=== PATIENT | female | born 1945 | race Caucasian/White ===

== ENCOUNTER 2020-04-11 10:55 | Outpatient (REF) | payer MEDICARE, SELFPAY ==
--- NOTE | 2020-04-11 10:59 | MM_ITS ---
EXAMINATION: MM SCREENING DIGITAL BREAST TOMOSYNTHESIS, BILATERAL CLINICAL INFORMATION: Screening. Asymptomatic. The lifetime risk of breast cancer based on the Tyrer-Cuzick Model is 6.1%. COMPARISON: Mammography: January 13, 2019 and studies dating back to August 15, 2009 TECHNIQUE: Digital breast tomosynthesis is performed in both the craniocaudal and mediolateral oblique views along with computer-aided detection (CAD). Synthesized 2D images are generated from the tomosynthesis. FINDINGS: There are scattered areas of fibroglandular density (ACR BI-RADS breast composition Category b). There are no significant masses, abnormal calcifications, or other abnormalities. MM/MM tomosynthesis screening BI IMPRESSION: There are no significant changes from prior study. ASSESSMENT: BI-RADS 1: Negative RECOMMENDATION: Routine annual mammography screening. This patient's information was entered into a reminder system with a target due date for their next mammogram.
== END 2020-04-11 10:56 | disposition home or self-care (01) ==
LOC: HO.MAMMO 10:55
PROVIDERS: PCP Internal Medicine; Visit Provider Internal Medicine
DX: Z12.31 Encounter for screening mammogram for malignant neoplasm of breast (principal)
CPT/HCPCS: 77063; 77067

== ENCOUNTER → 2020-09-17 10:59 | Outpatient (BNVA) | payer MEDICARE, SELFPAY | PROVIDERS: PCP Internal Medicine; Visit Provider Surgery | DX: K43.2 Incisional hernia without obstruction or gangrene (principal); Z85.038 Personal history of other malignant neoplasm of large intestine | CPT/HCPCS: 99212 ==

== ENCOUNTER 2020-10-12 07:15 | Day surgery (SDC) | payer MEDICARE, SELFPAY ==
[2020-10-09 09:53] VITALS: BMI 34.0
--- NOTE | 2020-10-11 08:44 | HO.ANESPROP2 ---
Documented by User: Yulissa Huizar 10/11/20 08:50 HPI - Anesthesia Eval Consult details Narrative: 75yo for Colonoscopy, Poss Polypectomy [facility] Active Problems Active Problems: All Active Problems (Updated 10/09/20 @ 09:46 by Jeanna Field) Incisional hernia (Acute) History of colon cancer (Acute) Past Medical History Medical History Anemia Elevated cholesterol History of chemotherapy History of colon cancer History of diverticulosis History of heartburn Incisional hernia Surgical History Surgical History History of bladder suspension procedure History of esophagogastroduodenoscopy (EGD) History of hemicolectomy History of total abdominal hysterectomy Hx of colonoscopy Social History Social History Alcohol intake: current Alcohol type: wine Smoking Status: Former smoker Advance Directives: No Advance Directives Information Provided: No Advance Directives on File: No Meds Allergies Allergy/AdvReac Type Severity Reaction Status Date / Time lidocaine Allergy Unknown TOPICAL Verified 10/09/20 09:48 LIDOCAINE- SWELLING/REDNESS amoxicillin [From AUGMENTIN] AdvReac Severe RASH Verified 10/09/20 09:48 clavulanic acid AdvReac Severe RECTAL Verified 10/09/20 09:48 [From AUGMENTIN] BLEED/RASH topical lidocaine Allergy Unknown rash, Uncoded 10/09/20 09:48 swelling Home Medications Medication Instructions Recorded Confirmed Last Taken Type aspirin 325 mg tablet 325 mg PO DAILY 09/17/20 10/09/20 Unknown History atorvastatin 10 mg tablet 10 mg PO DAILY 09/17/20 10/09/20 Unknown History Exam Exam Date and Time: October 11, 2020 0844 Height,Weight and Vital Signs: Height 5 ft 1 in Weight 81.647 kg Assessment and Plan Assessment Anesthesia Assessment: Chart Reviewed Documented by User: Mani Villareal 10/12/20 08:24 PMFSH Past Medical History Medical History Anemia Elevated cholesterol History of chemotherapy History of colon cancer History of diverticulosis History of heartburn Incisional hernia Surgical History Surgical History History of bladder suspension procedure History of esophagogastroduodenoscopy (EGD) History of hemicolectomy History of total abdominal hysterectomy Hx of colonoscopy Social History Social History Alcohol intake: current Alcohol type: wine Smoking Status: Former smoker Advance Directives: No Advance Directives Information Provided: No Advance Directives on File: No Meds Allergies Allergy/AdvReac Type Severity Reaction Status Date / Time lidocaine Allergy Unknown TOPICAL Verified 10/09/20 09:48 LIDOCAINE- SWELLING/REDNESS amoxicillin [From AUGMENTIN] AdvReac Severe RASH Verified 10/09/20 09:48 clavulanic acid AdvReac Severe RECTAL Verified 10/09/20 09:48 [From AUGMENTIN] BLEED/RASH topical lidocaine Allergy Unknown rash, Uncoded 10/09/20 09:48 swelling Home Medications Medication Instructions Recorded Confirmed Last Taken Type aspirin 325 mg tablet 325 mg PO DAILY 09/17/20 10/09/20 Unknown History atorvastatin 10 mg tablet 10 mg PO DAILY 09/17/20 10/09/20 Unknown History Exam Airway Mallampati Class: II TM Dist: >3cm Neck ROM: Full Loose/Missing/Broken Teeth: Yes (2 upper front crowns not loose, poor dentition) Heart: [id number] Lungs: cta b/l Assessment and Plan Assessment Anesthesia Assessment: Anesthesia Plan Discussed, PAT Visit and Chart Reviewed Final Anesthetic Review NPO: Yes ASA Class: II Final Preanesthetic Review: No Changes in Pt Med Stat, Meds/Allgs Chart Reviewed, Consent Obtained/Reviewed and Anes Risks/Benef Reviewed Patient Risk: Low Procedure Risk: Low Assessment/Block/Sedation in SS: Assess/Block/Sedation-SS Anesthetic Plan Anesthetic Plan: MAC: and Agree w/ Assess. and Plan Disposition: Standard PACU
[2020-10-12 07:34] VITALS: BP 136/68; PULSE 106; RESP 16; TEMP 36.2; O2SAT 95
[2020-10-12] MEDS: Lactated Ringers 1,000 ML 100 ML IVCONT (07:45)
--- NOTE | 2020-10-12 08:30 | MHC.SHP ---
Pre-Procedural Eval Section B Chief Complaint: History of colon cancer Allergies: Allergies Allergy/AdvReac Type Severity Reaction Status Date / Time lidocaine Allergy Unknown TOPICAL Verified 10/09/20 09:48 LIDOCAINE- SWELLING/REDNESS amoxicillin [From AUGMENTIN] AdvReac Severe RASH Verified 10/09/20 09:48 clavulanic acid AdvReac Severe RECTAL Verified 10/09/20 09:48 [From AUGMENTIN] BLEED/RASH topical lidocaine Allergy Unknown rash, Uncoded 10/09/20 09:48 swelling Plan I have reviewed the history and physical and performed a pertinent physical examination on my patient. No changes have occurred unless specified.
--- NOTE | 2020-10-12 09:10 | W.PM.OPN ---
Operative Note Operative Note Date of Service: 10/12/20 Narrative: Preop diagnosis: Personal history of colon cancer Postop diagnosis: Severe diverticulosis of the sigmoid Procedure: Colonoscopy Surgeon: Thierry Gary MD The patient is a 75 year female who previously had right colon resection with Dr. Murphy for colon cancer. She undergoes follow-up colonoscopies for surveillance. Her last colonoscopy was in 2018. She had polyps at that time so she was advised to have another colonoscopy in 3 years. She understood the technique of the procedure as well as the risks, benefits, and alternatives. She was brought to the operating room placed in left lateral decubitus position under monitored anesthesia care. A full digital rectal was done. There were no palpable anal canal lesions. The tip of the Olympus colonoscope was gently inserted through the anal orifice and advanced with insufflation until we reached what appeared to be the ileal-colonic anastomosis. I could see the transition from colonic mucosa to small intestinal mucosa this point with note of the fine villi of the small intestine. I therefore proceeded to withdraw the scope with careful examination of the entire colonic mucosa being done with scope withdrawal. The patient had adequate bowel prep so it was unlikely that any lesion had been missed. There was note of severe diverticulosis of the sigmoid. Other than that there were no lesions seen. I reached the rectum and examined this carefully and there were no polyps or any other lesions. The rectal shelf in the anal canal where unremarkable and the scope was then withdrawn completely with desufflation. The patient tolerated the procedure well. There were no complications noted. In view of her personal history of colon cancer, her next colonoscopy may be in the next 5 years if she still in good health by then. Withdrawal time was about 7 minutes.
[2020-10-12 09:14] VITALS: BP 104/47; PULSE 92; RESP 12; TEMP 36.3; O2SAT 98
--- NOTE | 2020-10-12 09:14 | PM.OP ---
Brief Operative Note Date of Service: 10/12/20 Pre-op diagnosis: Personal history of colon cancer Post-op diagnosis: other (Severe diverticulosis) Procedure: Colonoscopy Surgeon: Thierry Gary MD Anesthesia: GLMA Estimated blood loss (mL): 0 Pathology: none sent Condition: stable
[2020-10-12 09:29] VITALS: BP 119/59; PULSE 80; RESP 16; TEMP 36.3; O2SAT 97
== END 2020-10-12 10:25 | disposition home or self-care (01) ==
PROVIDERS: PCP Internal Medicine; Visit Provider Surgery
PROC: 0DJD8ZZ Inspection of Lower Intestinal Tract, Via Natural or Artificial Opening Endoscopic (ICD-10-PCS; CPT 45378; principal; 2020-10-12 08:20)
DX: Z12.11 Encounter for screening for malignant neoplasm of colon (principal); Z85.038 Personal history of other malignant neoplasm of large intestine; K57.30 Diverticulosis of large intestine without perforation or abscess without bleeding; D64.9 Anemia, unspecified; Z92.21 Personal history of antineoplastic chemotherapy; Z90.49 Acquired absence of other specified parts of digestive tract; Z79.82 Long term (current) use of aspirin; Z79.899 Other long term (current) drug therapy; Z88.0 Allergy status to penicillin; Z88.8 Allergy status to other drugs, medicaments and biological substances; Z87.891 Personal history of nicotine dependence
CPT/HCPCS: G0105

== ENCOUNTER → 2020-10-24 11:20 | Outpatient (BNVA) | payer MEDICARE, SELFPAY | PROVIDERS: PCP Internal Medicine; Visit Provider Surgery | DX: K57.90 Diverticulosis of intestine, part unspecified, without perforation or abscess without bleeding (principal); Z85.038 Personal history of other malignant neoplasm of large intestine | CPT/HCPCS: Q3014 ==

== ENCOUNTER 2021-07-24 10:02 | Outpatient (REF) | payer MEDICARE, SELFPAY ==
--- NOTE | ~2021-07-24 | MM_ITS ---
EXAMINATION: MM SCREENING DIGITAL BREAST TOMOSYNTHESIS, BILATERAL CLINICAL INFORMATION: Screening. Asymptomatic. The lifetime risk of breast cancer based on the Tyrer-Cuzick Model is 6%. COMPARISON: Mammography: 04/11/2020, 01/13/2019, 12/22/2017 TECHNIQUE: Digital breast tomosynthesis is performed in both the craniocaudal mediolateral oblique views along with computer-aided detection (CAD). Synthesized 2D images are generated from the tomosynthesis. Additional left CC view is provided. FINDINGS: There are scattered areas of fibroglandular density (ACR BI-RADS breast composition Category b). There are no significant masses, abnormal calcifications, or other abnormalities. Parenchymal pattern is similar to prior studies. There is no developing density or architectural abnormality. The axilla and skin contours are unremarkable. No significant changes. MM/MM tomosynthesis screening BI IMPRESSION: No mammographic evidence of malignancy. ASSESSMENT: BI-RADS 1: Negative RECOMMENDATION: Routine annual mammography screening. This patient's information was entered into a reminder system with a target due date for their next mammogram.
== END 2021-07-24 10:03 | disposition home or self-care (01) ==
LOC: HO.MAMMO 10:02
PROVIDERS: PCP Internal Medicine; Visit Provider Internal Medicine
DX: Z12.31 Encounter for screening mammogram for malignant neoplasm of breast (principal)
CPT/HCPCS: 77063; 77067

== ENCOUNTER 2022-07-29 08:50 | Outpatient (REF) | payer MEDICARE, SELFPAY ==
--- NOTE | ~2022-07-29 | MM_ITS ---
EXAMINATION: BONE DENSITOMETRY CLINICAL INDICATION: Postmenopausal. COMPARISON: Previous BD dated 01/13/2019 and baseline BD dated 11/08/2009. TECHNIQUE: Using a W[employer] DXA System (software version: 13.1) manufactured by [employer], dual-energy x-ray absorptiometry was performed of the lumbar spine and left hip. The images are of good technical quality. Summary results are attached. FINDINGS: AP SPINE L1-L4: Current: BMD 1.202 g/cm2, Z-score 1.7, T-score 0.2, normal, 4.9% increase from previous, 9.5% increase from baseline (<5% change is not significant). Prior: BMD 1.146 g/cm2. Baseline: BMD 1.098 g/cm2. LEFT FEMUR, NECK: Current: BMD 0.775 g/cm2, Z-score -0.1, T-score -1.9, osteopenia. Prior: BMD 0.769 g/cm2. Baseline: BMD 0.942 g/cm2. LEFT FEMUR, TOTAL: Current: BMD 0.850 g/cm2, Z-score 0.4, T-score -1.3, osteopenia, 6.7% decrease from previous, 15.0% decrease from baseline (<5% change is not significant). Prior: BMD 0.911 g/cm2. Baseline: BMD 1.000 g/cm2. IDENTIFIED RISK FACTORS: Menopause, hysterectomy, dementia, bilateral oophorectomy. HISTORY OF FRACTURE: None listed. MEDICATIONS: Calcium/multivitamin. MM/XR DEXA axial skeleton IMPRESSION: 1. DIAGNOSIS: Osteopenia based on the lowest T-score value of -1.9 in the lumbar spine applying World Health Organization criteria. 2. 10-YEAR FRACTURE RISK PREDICTION, FRAX: Major osteoporotic fracture (clinical spine, forearm, hip or shoulder) 13.3%. Hip fracture 3.4%. 3. Treatment Recommendations: NOF guidelines recommend consideration for treatment in postmenopausal women and men age 50 and older presenting with the following: -A hip or vertebral (clinical or morphometric) fracture. -T-score less than or equal to -2.5 at the femoral neck or spine after appropriate evaluation to exclude secondary causes. -Low bone mass at the hip or spine and a 10-year fracture probability by FRAX of greater than or equal to 3% for hip fracture or greater than or equal to 20% for major osteoporotic fracture based on the [place] adapted WHO algorithm. 4. Other Recommendations: All treatment decisions require clinical judgment and consideration of individual patient factors, including patient preferences, comorbidities, previous drug use, risk factors not captured in the FRAX model (e.g. frailty, falls, vitamin D deficiency, increased bone turnover, interval significant decline in bone density) and possible under or overestimation of fracture risk by FRAX. Additional medical evaluation for secondary cause of low bone mineral density may be appropriate. FUTURE SCAN RECOMMENDATION: People with diagnosed cases of osteoporosis or at high risk for fracture should have regular bone mineral density tests. For patients eligible for Medicare, routine testing is allowed once every 2 years. The testing frequency can be increased to one year for patients who have rapidly progressing disease, those who are receiving or discontinuing medical therapy to restore bone mass, or have additional risk factors.
--- NOTE | ~2022-07-29 | MM_ITS ---
EXAMINATION: MM SCREENING DIGITAL BREAST TOMOSYNTHESIS, BILATERAL CLINICAL INFORMATION: Screening. Asymptomatic. The lifetime risk of breast cancer based on the Tyrer-Cuzick Model is 5%. COMPARISON: Mammography: 07/24/2021, 04/11/2020, 01/13/2019 TECHNIQUE: Digital breast tomosynthesis is performed in both the craniocaudal and mediolateral oblique views along with computer-aided detection (CAD). Synthesized 2D images are generated from the tomosynthesis. FINDINGS: There are scattered areas of fibroglandular density (ACR BI-RADS breast composition Category b). There are no significant masses, abnormal calcifications, or other abnormalities. Breast tissue composition borders on predominantly fatty. Background stromal and fibroglandular densities are stable. No developing density or architectural abnormality. The axilla are unremarkable. MM/MM tomosynthesis screening BI IMPRESSION: No mammographic evidence of malignancy. ASSESSMENT: BI-RADS 1: Negative RECOMMENDATION: Routine annual mammography screening. This patient's information was entered into a reminder system with a target due date for their next mammogram.
== END 2022-07-29 08:51 | disposition home or self-care (01) ==
LOC: HO.MAMMO 08:50
PROVIDERS: PCP Internal Medicine; Visit Provider Internal Medicine
DX: Z12.31 Encounter for screening mammogram for malignant neoplasm of breast (principal); Z13.820 Encounter for screening for osteoporosis; Z78.0 Asymptomatic menopausal state
CPT/HCPCS: 77063; 77067; 77080

== ENCOUNTER 2023-08-04 08:45 | Outpatient (REF) | payer MEDICARE, SELFPAY | END 2023-08-04 08:46 | disposition home or self-care (01) | LOC: HO.MAMMO 08:45 | PROVIDERS: PCP Internal Medicine; Visit Provider Internal Medicine | DX: Z12.31 Encounter for screening mammogram for malignant neoplasm of breast (principal) | CPT/HCPCS: 77063; 77067 ==

== ENCOUNTER → 2023-08-04 09:00 | Outpatient (BNV) | payer MEDICARE, SELFPAY | PROVIDERS: PCP Internal Medicine; Visit Provider Radiology Diagnostic Radiology | DX: Z12.31 Encounter for screening mammogram for malignant neoplasm of breast (principal) | CPT/HCPCS: 77063; 77067 ==

== ENCOUNTER 2023-12-07 08:40 | Inpatient (IN) | payer MEDICARE, SELFPAY ==
[2023-12-07] VITALS (7 sets, daily range): BP systolic 110–200; BP diastolic 50–88; PULSE 69–98; RESP 12–18; TEMP 36.3–36.9; O2SAT 93–100; BMI 31.9
--- NOTE | ~2023-12-07 | CT_ITS ---
EXAMINATION: CT ABDOMEN AND PELVIS WITH CONTRAST CLINICAL INFORMATION: Diarrhea with abdominal pain and distention COMPARISON: CT abdomen pelvis 08/22/2016 TECHNIQUE: Multidetector volumetric images were obtained from the superior aspect of the liver through the pubic symphysis following administration 85 mL of Omnipaque 350 intravenous contrast. Sagittal and coronal reformatted images were obtained on the technologist's workstation. Oral contrast: No This CT examination was performed using dose optimization techniques as appropriate, variously including the following: *Automated exposure control *Adjustment of mA and/or kV according to patient size (this includes techniques or standardized protocols for targeted exams where dose is matched to indication/reason for exam; i.e. extremities or head) *Use of iterative reconstruction technique DLP: 605 mGy-cm FINDINGS: LUNG BASES: Emphysematous changes are seen with mild bronchial thickening. The 4 mm right lower lobe pulmonary nodule is unchanged (4:37 compare prior 3:74). The left hemidiaphragm is mildly elevated. No consolidations or effusions. LIVER, GALLBLADDER, AND BILIARY TREE: The liver is normal in size, shape, and attenuation. No focal hepatic lesion or biliary ductal dilatation is present. The gallbladder is distended with multiple layering calculi. No pericholecystic fluid collections are seen. PANCREAS: Unremarkable. SPLEEN: Unremarkable. ADRENAL GLANDS: Unremarkable. KIDNEYS AND URETERS: The kidneys are normal in size, shape, and attenuation. No hydronephrosis, hydroureter, or calculi seen. No perinephric stranding. 2 tiny unchanged right benign Bosniak class I renal cysts are noted which require no additional imaging or follow-up. No solid renal masses are seen. BLADDER: Empty and cannot be evaluated GASTROINTESTINAL TRACT: Status post partial right colectomy with widely patent ileocolic anastomosis. The distal ileum is diseased and narrowing of approximately the last cm segment. Proximal to this the small bowel is dilated with some fecalization of contents. The very proximal small bowel is not dilated. The remaining colon demonstrates marked diverticular changes in the sigmoid with scattered diverticula elsewhere. No evidence of diverticulitis. Appendix no longer present. ABDOMINAL WALL: There is a large broad-based epigastric hernia present containing transverse colon. LYMPH NODES: No retroperitoneal lymphadenopathy. VASCULAR: There is mild aneurysmal dilatation of the infrarenal aorta which has increased in diameter from 2.3 cm in maximal dimension to 3.0 cm. There is eccentric thrombus and calcification present in the small aneurysm. PELVIC VISCERA: The uterus is not seen. An abnormal adnexal mass is not detected. No free intraperitoneal fluid is present. No free air OSSEOUS STRUCTURES: Unremarkable. Degenerative changes are present. CT/CT abdomen pelvis w IV con IMPRESSION: 1. Status post partial right colectomy with widely patent ileocolic anastomosis. 2. The distal ileum is diseased and narrowed with proximal dilatation of small bowel with fecalization of contents. Findings are consistent with a partial small bowel obstruction. 3. Incidental note made of emphysema, stable 4 mm right lower lobe pulmonary nodule, cholelithiasis, colonic diverticulosis without diverticulitis, large epigastric hernia containing transverse colon and mild aneurysmal dilatation of the infrarenal aorta at 3 cm. Surveillance aortic ultrasound recommended every 3 years. Fleischner guidelines were followed.
--- NOTE | 2023-12-07 09:04 | ECG_ITS ---
Test Reason : WEAKNESS Blood Pressure : / mmHG Vent. Rate : 068 BPM Atrial Rate : 068 BPM P-R Int : 128 ms QRS Dur : 082 ms QT Int : 396 ms P-R-T Axes : 049 017 144 degrees QTc Int : 421 ms Normal sinus rhythm Possible Inferior infarct , age undetermined Abnormal ECG When compared with ECG of 20-AUG-2016 17:50, Vent. rate has decreased BY 38 BPM T wave inversion more evident in Lateral leads QT has shortened Referred By: Brandee Unger Electronically Signed By:CARLENE DUNCAN MD
--- NOTE | 2023-12-07 09:13 | ED_ITS ---
HPI - Nausea/Vomiting/Diarrhea General Chief complaint: Nausea/Vomiting/Diarrhea Stated complaint: N/V/D PER EMS Time Seen by Provider: 12/07/23 08:44 Source: patient Mode of arrival: ambulatory Limitations: no limitations History of Present Illness ED Provider: GELACIO SEXTON Narrative: 78 yo female with PMH of HLD, colon cancer remote s/p resection, cognitive impairment here with c/o diarrhea nonbloody yesterday with n/v and lower abdominal pain no travel, sick contacts, food exposures, antibiotic use. She called 911 after symptoms persisted today. MD elicited complaint: nausea, vomiting, diarrhea and abdominal pain Onset (ago): day(s) (2) Description of vomiting: food contents and watery Description of diarrhea: watery Associated nausea: Yes Associated abdominal pain: Yes Location of pain: LLQ and suprapubic Radiation: diffuse Pain consistency: intermittent Severity: moderate Quality: cramping Exacerbating factors: eating Relieving factors: none Context: history of abdominal surgery Associated symptoms: loss of appetite, malaise, nausea/vomiting and weakness Related Data Home Medications ?Medication ?Instructions ?Recorded ?Confirmed aspirin 325 mg tablet 325 mg PO DAILY 09/17/20 10/24/20 atorvastatin 10 mg tablet 10 mg PO DAILY 09/17/20 10/24/20 Previous Rx's ?Medication ?Instructions ?Recorded sodium,potassium,mag sulfates 17.5 See Rx Instructions PO .COMPLEX 09/17/20 gram-3.13 gram-1.6 gram oral soln #354 mL (Suprep Bowel Prep Kit) Allergies Allergy/AdvReac Type Severity Reaction Status Date / Time lidocaine Allergy Unknown TOPICAL Verified 12/07/23 08:57 LIDOCAINE- SWELLING/REDNESS amoxicillin [From AUGMENTIN] AdvReac Severe RASH Verified 12/07/23 08:57 clavulanic acid AdvReac Severe RECTAL Verified 12/07/23 08:57 [From AUGMENTIN] BLEED/RASH topical lidocaine Allergy Unknown rash, Uncoded 12/07/23 08:57 swelling Review of Systems 2 Review of Systems: Constitutional : No Weight loss, No Fever, No Chills ENT/Mouth : No sore throat, No Rhinorrhea Eyes: No Swelling, No Redness Cardiovascular : No Chest Pain, No SOB, NoEdema Respiratory : No Cough, No Sputum, No Wheezing Gastrointestinal : Positive Nausea, Positive Vomiting, positive Diarrhea, positive abdominal Pain, No Hematochezia, No Melena Genitourinary : No Dysuria, No Urinary Frequency, No Hematuria, No Urgency Musculoskeletal : No joint pain, No Myalgias, No Joint Swelling Skin : No Skin Lesions, No rash Neuro : No Weakness, No Numbness, No Dizziness, No Headache Psych : No Anxiety/Panic, No Depression Heme/Lymph: No Bruising, No Lymphadenopathy Endocrine : No Polyuria, No Polydipsia All other systems reviewed and are negative. Gastrointestinal: Gastrointestinal: Reports nausea PMFSH Past Medical History Attestation statement: The following information was validated with the patient. Source: old records reviewed Medical History Diverticulosis History of chemotherapy Anemia History of heartburn History of diverticulosis Elevated cholesterol Incisional hernia History of colon cancer Surgical History History of total abdominal hysterectomy History of bladder suspension procedure Hx of colonoscopy History of esophagogastroduodenoscopy (EGD) History of hemicolectomy Social History Social History (Updated 12/07/23 @ 09:14 by Brandee Unger DO) Alcohol intake: current Alcohol intake frequency: holidays/special occasions only Alcohol type: wine Patient Tobacco Use Status: Never used Tobacco Smoked in Last 30 Days: No Use of substances other than those prescribed or required for medical reasons: No Advance Directives: No Advance Directives Information Provided: No Do you have a plan to hurt others: No Plan Physical Exam 2 Vital Signs: Vital Signs: Last Vital Signs Temp 97.7 F 12/07/23 12:00 Pulse 98 12/07/23 12:00 Resp 12 12/07/23 10:00 BP 111/50 L 12/07/23 12:00 Pulse Ox 98 12/07/23 12:00 O2 Del Method Room Air 12/07/23 12:00 BMI result Body Mass Index 31.9 Appearance: Alert. Oriented X3. No acute distress. Eyes: Pupils equal, round and reactive to light. ENT: Pharynx dry MM Neck: Normal inspection. Neck supple. CVS: Normal heart rate and rhythm. Pulses normal. Respiratory: No respiratory distress. Breath sounds normal. Abdomen: Soft and mild distention with ttp in LLQ no rebound Skin: Skin warm and dry. pale skin color. Normal skin turgor. Extremities: No lower extremity edema. Neuro: Oriented X 3. No motor deficit. No sensory deficit. Medications Administered Discontinued Medications Generic Name Dose Route Start Last Admin Trade Name Paula PRN Reason Stop Dose Admin Sodium Chloride 1,000 mls @ 999 mls/hr 12/07/23 09:04 12/07/23 12:29 Ns IV 12/07/23 10:04 Infused .Q1H1M ONE Infusion Iohexol 100 ml 12/07/23 10:55 12/07/23 10:55 Iohexol 350 Mg/Ml 100 Ml Infus..Btl IV 12/07/23 10:56 85 ml ONCE ONE Administration Morphine Sulfate 2 mg 12/07/23 09:04 12/07/23 09:25 Morphine Sulfate 2 Mg/Ml Cartridge IVPUSH 12/07/23 09:05 2 mg ONCE ONE Administration Protocol Ondansetron HCl 4 mg 12/07/23 09:04 12/07/23 09:25 Ondansetron Hcl 4 Mg/2 Ml Vial IVPUSH 12/07/23 09:05 4 mg ONCE ONE Administration Medical Decision Making Medical Decision Making [facility] Narrative: 78 yo female with PMH of HLD, colon cancer remote s/p resection, cognitive impairment here with c/o n/v/d and abdominal pain at this time will need IVF, IV morphine for pain, CT scan for obstruction, bowel pathology - stool studies ordered. Differential Diagnosis Differential Diagnoses: The differential diagnosis associated with the presentation includes viral syndrome, GI pathology, SBO Admission/Observation Consideration of admission/observation: Escalation of care including admission/observation considered admit for IVF and nausea medications Consult Healthcare Provider Management of the patient was discussed with: Hospitalist (will admit) and Physical Education Department Chair (Jerry no surgery needed) Lab Data [facility] Lab Attestation statement: I reviewed the patient's lab results. 12/07/23 09:41 12/07/23 09:41 Labs: Lab Results 12/07/23 12/07/23 Range/Units 09:41 10:05 WBC 9.8 (4.8-10.8) X10*3/uL RBC 5.38 (4.20-5.50) X10*6/uL Hgb 15.8 (12.0-16.0) g/dl Hct 46.4 (37.0-47.0) % MCV 86.2 (80.0-98.0) fL MCH 29.4 (27.0-33.0) pg MCHC 34.1 (31.0-35.0) g/dl RDW 13.4 (11.0-16.0) % Plt Count 224 (160-400) X10*3/uL MPV 10.3 (9.4-12.3) fL Immature Gran % (Auto) 0.7 H (0.0-0.4) % Neut % (Auto) 89.0 H (45-73) % Lymph % (Auto) 4.5 L (20-40) % [place] % (Auto) 5.4 (2-11) % Eos % (Auto) 0.0 (0-4) % Baso % (Auto) 0.4 (0-2) % Lymph # (Auto) 0.4 L (1.2-4.9) X10*3/uL [place] # (Auto) 0.5 (0.1-1.2) X10*3/uL Eos # (Auto) 0.0 (0.0-0.4) X10*3/uL Baso # (Auto) 0.0 (0.0-0.2) X10*3/uL Abs Immat Gran (auto) 0.07 H (0.00-0.03) X10*3/uL Absolute Neuts (auto) 8.8 H (2.0-8.3) x10*3/uL Absolute Nucleated RBC 0.000 (0.0-0.012) X10*3/uL Nucleated RBC % (auto) 0.0 (0.0-0.2) /100WBC Sodium 141 (135-145) mmol/L Potassium 4.0 (3.3-5.1) mmol/L Chloride 107 (96-108) mmol/L Carbon Dioxide 23 (22-29) mmol/L Anion Gap 15 (12-20) BUN 9 (9-16) mg/dL Creatinine 0.81 (0.5-1.4) mg/dL Estim Creat Clear Calc 53.6 Estimated GFR > 60 Random Glucose 127 H (60-115) mg/dL Lactic Acid 1.5 (0.5-2.0) mmol/L Calcium 9.2 (8.4-10.2) mg/dL Magnesium 1.9 (1.6-2.6) mg/dL Total Bilirubin 0.6 (0.0-1.0) mg/dL Direct Bilirubin 0.2 (0.0-0.5) mg/dL AST 18 (5-31) U/L ALT 12 (0-31) U/L Alkaline Phosphatase 66 (39-117) U/L Total Protein 6.9 (6.5-8.0) g/dL Albumin 3.7 (3.5-5.0) g/dL Lipase 27 (8-78) U/L Urine Color Dark Yellow Urine Appearance Turbid Urine pH 5.5 (5.0-9.0) Ur Specific [place] >= 1.030 H (1.005-1.025) Urine Protein 30 (1+) H (Neg-Trace) mg/dL Urine Glucose (UA) Negative (Negative) mg/dL Urine Ketones 15 (Negative) mg/dL Urine Blood Negative (Negative) Urine Nitrite Negative (Negative) Ur Leukocyte Esterase Moderate (2+) H (Negative) Urine RBC 0-2 (0-2) /HPF Urine WBC 6-10 (0-5) /HPF Ur Squamous Epith Cells 3-5 (0-2) /HPF Calcium Oxalate Crystal Present Urine Bacteria 1+ (None Seen) Hyaline Casts 0-2 (0-2) /LPF Independent Interpretation I performed an independent interpretation of an: EKG and CT Scan (PSBO) Interpretation: Rate: 68 Rhythm: NSR [place]: normal Normal P waves. Normal SHEYLA. Normal QRS complex. ST T wave : nonspecific scooping ST T wave segments an inversions in anterior lateral leads, no BHUPINDER qTC: 421 prior studies: noted on prior ECG 2017 The study has been interpreted contemporaneously by me. . Independent Historian Clinical information obtained from an independent historian. History obtained from or confirmed by: EMS and Other (family) External Record Review External record reviewed: Inpatient record Critical Care Time Critical Care Time Critical Care Time: Yes Total Critical Care Time: 35 Attestation: IV morphine with improvement in pain, medical consult, admission I attest to this time spent taking care of the patient Discharge Plan Discharge Clinical Impression: Partial small bowel obstruction Nausea & vomiting Qualifiers: Vomiting type: unspecified Qualified Code(s): R11.2 - Nausea with vomiting, unspecified Patient Disposition: Admitted As Inpatient Print Language: Armenian
[2023-12-07] MEDS: Morphine Sulfate 2 MG/ML CARTRIDGE IVPUSH (09:25)
[2023-12-07] MEDS: ondansetron HCL 4 MG/2 ML VIAL IVPUSH (09:25)
[2023-12-07] MEDS: 0.9 % Sodium Chloride 1,000 ML 999 ML IV (09:28)
--- NOTE | 2023-12-07 09:34 | PC.NURSE ---
Pt arrices from EMS with c/o n/v/d since about 6am today. Reports Hx diverticulitis and bowel resection in 2017. States she did eat an ear of corn last night. Pain is 5/10 in the abdomen. Pt medicated with Zofran and Morphine per AUG.
[2023-12-07 09:48] LABS: MANUAL DIFF FLAG NO
[2023-12-07 09:53] LABS: Basophils Percent Auto 0.4 % (0-2); Hematocrit 46.4 % (37.0-47.0); Hemoglobin 15.8 g/dl (12.0-16.0); Imm Gran Abs Auto 0.07 X10*3/uL (0.00-0.03); Imm Gran Pct Auto 0.7 % (0.0-0.4); Lymphocytes Absolute Auto 0.4 X10*3/uL (1.2-4.9); Lymphocytes Percent Auto 4.5 % (20-40); Mean Corpuscular HGB Conc 34.1 g/dl (31.0-35.0); Mean Corpuscular Hemoglobin 29.4 pg (27.0-33.0); Mean Corpuscular Volume 86.2 fL (80.0-98.0); Mean Platelet Volume 10.3 fL (9.4-12.3); Monocytes Absolute Auto 0.5 X10*3/uL (0.1-1.2); Monocytes Percent Auto 5.4 % (2-11); Neutrophils Absolute Auto 8.8 x10*3/uL (2.0-8.3); Platelet Count 224 X10*3/uL (160-400); Red Blood Count 5.38 X10*6/uL (4.20-5.50); Red Cell Distribution Width 13.4 % (11.0-16.0); White Blood Count 9.8 X10*3/uL (4.8-10.8)
[2023-12-07 10:02] LABS: Lactic Acid 1.5 mmol/L (0.5-2.0)
[2023-12-07 10:07] LABS: Alanine Aminotransferase 12 U/L (0-31); Albumin Level 3.7 g/dL (3.5-5.0); Alkaline Phosphatase 66 U/L (39-117); Anion Gap 15 (12-20); Aspartate Amino Transferase 18 U/L (5-31); Bilirubin Direct 0.2 mg/dL (0.0-0.5); Bilirubin Total 0.6 mg/dL (0.0-1.0); Blood Urea Nitrogen 9 mg/dL (9-16); Calcium 9.2 mg/dL (8.4-10.2); Carbon Dioxide 23 mmol/L (22-29); Chloride 107 mmol/L (96-108); Creatinine Clr Calc Pharmacy 53.6; Estimated Glomerular Filt Rate > 60; Glucose Random 127 mg/dL (60-115); Lipase 27 U/L (8-78); Magnesium 1.9 mg/dL (1.6-2.6); Sodium 141 mmol/L (135-145); Total Protein 6.9 g/dL (6.5-8.0)
[2023-12-07 10:21] LABS: Appearance Urine Turbid; Color Urine Dark Yellow; Glucose Urine UA Negative (Negative); Leukocyte Esterase Urine Moderate (2+) (Negative); Nitrite Urine Negative (Negative); PH 5.5 (5.0-9.0); Specific Gravity - Urine >= 1.030 (1.005-1.025); UMIC TRIGGER UACC YES; Urine Blood Negative (Negative); Urine Ketones 15 mg/dL (Negative); Urine Protein 30 (1+) mg/dL (Neg-Trace)
[2023-12-07 10:51] LABS: Bacteria Urine 1+ (None Seen); Calcium Oxalate Crystals Urine Present; Hyaline Casts Urine 0-2 /LPF (0-2); RBC Urine 0-2 /HPF (0-2); UACC Culture Trigger YES
[2023-12-07] MEDS: iohexoL 350 MG/ML 100 ML INFUS..BTL IV (10:55)
--- NOTE | 2023-12-07 11:31 | PC.NURSE ---
11:31a: Pt is observed resting in bed with daughter at bedside. Pt reports pain level has decreased however is still experiencing some pressure to her abd. Awaiting further testing and disposition.
--- NOTE | 2023-12-07 13:22 | PHA.MEDREC ---
Pharmacy Consult ? Medication Reconciliation Pharmacy has completed the medication reconciliation. Spoke to Patient and son to confirm med list. patients son states she only takes Donepezil 5 mg daily. He did see Atorvastatin bottle at home, however she doesn't take them.
--- NOTE | 2023-12-07 13:37 | P.HPHOSP_ITS ---
History of Present Illness Date of Service: 12/07/23 Attending physician on admission: Sincere Barakat Chief Complaint: abd pain, diarrhea 70-year-old female with history of hyperlipidemia, history of colon cancer s/p resection in 2017, cognitive impairment presented to the ED earlier today for evaluation of abdominal pain and nausea, vomiting, diarrhea. She reports she has been having near constant nonradiating mid abdominal pain over the last few weeks which acutely worsened last night. This morning was reporting a 10/10 pain, now more controlled around 3-4/10. Last night she also started with around 5+ episodes of watery diarrhea that is continued into this morning. This morning was also nauseous with vomiting. Denies any melena, hematochezia, fevers, chills, dysuria, hematuria, increased urinary frequency, cough, shortness of breath, chest pain. She denies any recent travel, antibiotic use, or eating bad foods. However, her [id number], Sujey, who is at bedside reports the patient short-term memory has been worsening over the last few months and they have been needing to remove bad foods from her refrigerator so it is unclear patient did actually consume some bad foods. She does currently live by herself. Since arrival, has been afebrile, vitals stable though did desaturate into the mid 80s following morphine administration. Was placed on 2 L supplemental O2. There is no leukocytosis. Renal function baseline, electrolyte levels normal. Lactic acid 1.5, hepatic function within normal limits. Urinalysis with 2+ leukocytes, 1+ protein, elevated specific gravity with positive squamous epithelial cells and 1+ bacteria. She is not complaining of any urinary symptoms. CT abdomen/pelvis shows s/p partial right colectomy was widely patent ileocolic anastomosis. The distal ileum is diseased and narrowed with proximal dilatation of small bowel with fecalization of contents consistent with partial small bowel obstruction. There is incidentally noted emphysema, colonic diverticulosis, large epigastric hernia without obstruction and mild aneurysmal dilatation of the infrarenal aorta 3 cm. She was evaluated by General surgery in the ED with suspicion for gastroenteritis. Not recommending NG tube at this time. Review of Systems 2 Review of Systems: Yes all other systems are reviewed and are negative [facility] Medical History Diverticulosis History of chemotherapy Anemia History of heartburn History of diverticulosis Elevated cholesterol Incisional hernia History of colon cancer Surgical History History of total abdominal hysterectomy History of bladder suspension procedure Hx of colonoscopy History of esophagogastroduodenoscopy (EGD) History of hemicolectomy Social History Alcohol intake: current Alcohol intake frequency: holidays/special occasions only Alcohol type: wine Patient Tobacco Use Status: Never used Tobacco Smoked in Last 30 Days: No Use of substances other than those prescribed or required for medical reasons: No Advance Directives: No Advance Directives Information Provided: No Do you have a plan to hurt others: No Plan Meds Allergies Allergy/AdvReac Type Severity Reaction Status Date / Time lidocaine Allergy Unknown TOPICAL Verified 12/07/23 08:57 LIDOCAINE- SWELLING/REDNESS amoxicillin [From AUGMENTIN] AdvReac Severe RASH Verified 12/07/23 08:57 clavulanic acid AdvReac Severe RECTAL Verified 12/07/23 08:57 [From AUGMENTIN] BLEED/RASH topical lidocaine Allergy Unknown rash, Uncoded 12/07/23 08:57 swelling Active Medications: Current Medications Sodium Chloride (Ns) 1,000 mls @ 75 mls/hr IVCONT .[id number] [facility] Home Medications ?Medication ?Instructions ?Recorded ?Confirmed ?Last Taken ?Type aspirin 325 mg tablet 325 mg PO DAILY PRN Pain 09/17/20 12/07/23 Unknown History donepezil 5 mg tablet 5 mg PO DAILY 12/07/23 12/07/23 12/05/23 History Physical Exam 2 Vital Signs and Narrative: Vital Signs: Last Vital Signs Temp 97.7 F 12/07/23 12:00 Pulse 98 12/07/23 12:00 Resp 12 12/07/23 10:00 BP 111/50 L 12/07/23 12:00 Pulse Ox 98 12/07/23 12:00 O2 Del Method Room Air 12/07/23 12:00 BMI result Body Mass Index 31.9 Constitutional - Awake and Alert, No apparent distress Eyes - PERRLA, EOMI Cardiovascular - S1S2, RRR, No edema Respiratory - Normal lung expansion, Normal respiratory effort, No respiratory distress, CTA bilaterally Gastrointestinal - softly distended with reducible epigastric hernia and mild diffuse ttp; hypoactive BS; No rebound or guarding Extremities - no calf tenderness bilaterally, no swelling Skin - Warm/Dry Neurological - Alert & oriented x3 Psychological - Appropriate affect Results Labs 12/07/23 09:41 12/07/23 09:41 Labs: Laboratory Results - last 24 hr 12/07/23 12/07/23 09:41 10:05 MCV 86.2 MCH 29.4 MCHC 34.1 RDW 13.4 Plt Count 224 MPV 10.3 Immature Gran % (Auto) 0.7 H Neut % (Auto) 89.0 H Lymph % (Auto) 4.5 L [place] % (Auto) 5.4 Eos % (Auto) 0.0 Baso % (Auto) 0.4 Lymph # (Auto) 0.4 L [place] # (Auto) 0.5 Eos # (Auto) 0.0 Baso # (Auto) 0.0 Abs Immat Gran (auto) 0.07 H Absolute Neuts (auto) 8.8 H Absolute Nucleated RBC 0.000 Nucleated RBC % (auto) 0.0 Anion Gap 15 Estim Creat Clear Calc 53.6 Estimated GFR > 60 Random Glucose 127 H Lactic Acid 1.5 Calcium 9.2 Magnesium 1.9 Total Bilirubin 0.6 Direct Bilirubin 0.2 AST 18 ALT 12 Alkaline Phosphatase 66 Total Protein 6.9 Albumin 3.7 Lipase 27 Urine Color Dark Yellow Urine Appearance Turbid Urine pH 5.5 Ur Specific [place] >= 1.030 H Urine Protein 30 (1+) H Urine Glucose (UA) Negative Urine Ketones 15 Urine Blood Negative Urine Nitrite Negative Ur Leukocyte Esterase Moderate (2+) H Urine RBC 0-2 Urine WBC 6-10 Ur Squamous Epith Cells 3-5 Calcium Oxalate Crystal Present Urine Bacteria 1+ Hyaline Casts 0-2 Imaging Radiologist's Impressions: Impressions Abdomen/Pelvis CT 12/07/23 10:39 IMPRESSION: 1. Status post partial right colectomy with widely patent ileocolic anastomosis. 2. The distal ileum is diseased and narrowed with proximal dilatation of small bowel with fecalization of contents. Findings are consistent with a partial small bowel obstruction. 3. Incidental note made of emphysema, stable 4 mm right lower lobe pulmonary nodule, cholelithiasis, colonic diverticulosis without diverticulitis, large epigastric hernia containing transverse colon and mild aneurysmal dilatation of the infrarenal aorta at 3 cm. Surveillance aortic ultrasound recommended every 3 years. Fleischner guidelines were followed. Assessment and Plan (1) Partial small bowel obstruction: Status: Acute Plan 70-year-old female with history of hyperlipidemia, history of colon cancer s/p resection in 2017, cognitive impairment admitted for further management of PSBO/ileus #Acute PSBO/ileus -?gastroenteritis -gi panel/cdiff pcr ordered -continue gentle IVF -Clear liquids, advanace as tolerated -pain management using pain scale -antiemetics prn #Unspecified cognitive impairment -continue donepazil dvt prophylaxis- lovenox dnr/dni- MOLST form completed bedside pt requires inpt stay at least 2 midnights for management of partial SBO with po intolerance in pt hx colon resection who would be at risk for progression to obstruction and will require IV fluids, diet advancement and expert consultation Quality Stroke Does the patient have a stroke diagnosis?: No VTE Prior VTE?: No VTE Risk Level:: Medical - moderate - high VTE Device Contraindication: Treatment Not Indicated VTE Drug Contraindication: N/A - Med Ordered
--- NOTE | 2023-12-07 13:44 | PM.CNGS ---
History of Present Illness Consult details Consult date: 12/07/23 Narrative: Patient is a 78-year-old female who has had a proximally 2 week history of intermittent diarrhea which has progressed over the last 2 days. Some associated nausea. She denies any sick contacts. She denied any unusual diet. She has not had any recent foreign travel. No recent prolonged antibiotic use Patient has history of right colon cancer and had surgery several years ago for this. She has had multiple colonoscopies but does not remember when her most recent one was. Patient has a known incisional hernia from the above-mentioned surgery for many years ago which has never been repaired. She otherwise has regular bowel habits and no other chronic GI issues or complaints. Chart was reviewed and patient evaluated. Normal white count and chemistry. CT reviewed [facility] Past Medical History Medical History Diverticulosis History of chemotherapy Anemia History of heartburn History of diverticulosis Elevated cholesterol Incisional hernia History of colon cancer Surgical History Surgical History History of total abdominal hysterectomy History of bladder suspension procedure Hx of colonoscopy History of esophagogastroduodenoscopy (EGD) History of hemicolectomy Social History Social History (Updated 12/07/23 @ 09:14 by Brandee Unger DO) Alcohol intake: current Alcohol intake frequency: holidays/special occasions only Alcohol type: wine Patient Tobacco Use Status: Never used Tobacco Smoked in Last 30 Days: No Use of substances other than those prescribed or required for medical reasons: No Advance Directives: No Advance Directives Information Provided: No Do you have a plan to hurt others: No Plan Meds Allergies Allergy/AdvReac Type Severity Reaction Status Date / Time lidocaine Allergy Unknown TOPICAL Verified 12/07/23 08:57 LIDOCAINE- SWELLING/REDNESS amoxicillin [From AUGMENTIN] AdvReac Severe RASH Verified 12/07/23 08:57 clavulanic acid AdvReac Severe RECTAL Verified 12/07/23 08:57 [From AUGMENTIN] BLEED/RASH topical lidocaine Allergy Unknown rash, Uncoded 12/07/23 08:57 swelling Active Medications: Current Medications Acetaminophen (Acetaminophen 325 Mg Tablet) 650 mg PO Q6H PRN PRN Reason: Pain, Mild (Pain Scale 1-3), fever or headache Calcium Carbonate (Calcium Carbonate 750 Mg Tab.Chew) 750 mg PO Q4H PRN PRN Reason: Heartburn Sodium Chloride (Ns) 1,000 mls @ 75 mls/hr IVCONT .[id number] [facility] Magnesium Hydroxide (Milk Of Magnesia 30 Ml Oral.Susp) 30 ml PO DAILY PRN PRN Reason: Constipation Melatonin (Melatonin 3 Mg Tablet) 6 mg PO BEDTIME PRN PRN Reason: Insomnia Morphine Sulfate (Morphine Sulfate 2 Mg/Ml Cartridge) 2 mg IVPUSH Q4H PRN; Protocol PRN Reason: Pain, Severe (Pain Scale 7-10) Ondansetron HCl (Ondansetron Hcl 4 Mg/2 Ml Vial) 4 mg IVPUSH Q8H PRN PRN Reason: Nausea and Vomiting Oxycodone HCl (Oxycodone Hcl Immed Release 5 Mg Tablet) 5 mg PO Q6H PRN PRN Reason: Pain, Moderate(Pain Scale 4-6) Sodium Chloride (0.9 % Sodium Chloride Flush 3 Ml Syringe) [facility] Medications ?Medication ?Instructions ?Recorded ?Confirmed ?Last Taken ?Type aspirin 325 mg tablet 325 mg PO DAILY PRN Pain 09/17/20 12/07/23 Unknown History donepezil 5 mg tablet 5 mg PO DAILY 12/07/23 12/07/23 12/05/23 History Physical Exam Vital Signs: Vital Signs: Last Vital Signs Temp 97.7 F 12/07/23 12:00 Pulse 98 12/07/23 12:00 Resp 12 12/07/23 10:00 BP 111/50 L 12/07/23 12:00 Pulse Ox 98 12/07/23 12:00 O2 Del Method Room Air 12/07/23 12:00 BMI result Body Mass Index 31.9 Const: Other: Pleasant elderly female in no acute distress. Patient's son was also present during evaluation. GI: Other: Abdomen midline incision with large reducible hernia. Abdomen is mildly corpulent, soft, benign. No evidence of any localized tenderness, guarding, rebound, or rigidity. Results Labs 12/07/23 09:41 12/07/23 09:41 Labs: Abnormal lab results 12/07/23 12/07/23 Range/Units 09:41 10:05 Immature Gran % (Auto) 0.7 H (0.0-0.4) % Neut % (Auto) 89.0 H (45-73) % Lymph % (Auto) 4.5 L (20-40) % Lymph # (Auto) 0.4 L (1.2-4.9) X10*3/uL Abs Immat Gran (auto) 0.07 H (0.00-0.03) X10*3/uL Absolute Neuts (auto) 8.8 H (2.0-8.3) x10*3/uL Random Glucose 127 H (60-115) mg/dL Ur Specific [place] >= 1.030 H (1.005-1.025) Urine Protein 30 (1+) H (Neg-Trace) mg/dL Ur Leukocyte Esterase Moderate (2+) H (Negative) Short CBC 12/07/23 Range/Units 09:41 WBC 9.8 (4.8-10.8) X10*3/uL Hgb 15.8 (12.0-16.0) g/dl Hct 46.4 (37.0-47.0) % Plt Count 224 (160-400) X10*3/uL BMP 12/07/23 09:41 Sodium 141 Potassium 4.0 Chloride 107 Carbon Dioxide 23 BUN 9 Creatinine 0.81 Calcium 9.2 Liver Function 12/07/23 Range/Units 09:41 Total Bilirubin 0.6 (0.0-1.0) mg/dL Direct Bilirubin 0.2 (0.0-0.5) mg/dL AST 18 (5-31) U/L ALT 12 (0-31) U/L Alkaline Phosphatase 66 (39-117) U/L Albumin 3.7 (3.5-5.0) g/dL Urine 12/07/23 Range/Units 10:05 Urine Color Dark Yellow Urine Appearance Turbid Urine pH 5.5 (5.0-9.0) Ur Specific [place] >= 1.030 H (1.005-1.025) Urine Protein 30 (1+) H (Neg-Trace) mg/dL Urine Glucose (UA) Negative (Negative) mg/dL All other labs normal. Assessment and Plan (1) Diarrhea: Status: Acute Plan At present, no acute surgical issues. Patient is going to be admitted to the hospitalist service. We will follow. Patient most probably has gastroenteritis/food poisoning with the associated symptomatic diarrhea and unlikely to be obstruction. We will nonetheless follow the patient clinically along with serial labs and exams and will direct further interventions and studies based on the patient's clinical course. Procedures Date of Service Date of Service: 12/07/23
[2023-12-07] MEDS: Enoxaparin Sodium 40 MG/0.4 ML SYRINGE SUBCUT (14:32)
[2023-12-07] MEDS: 0.9 % Sodium Chloride 1,000 ML 75 ML IVCONT (14:36)
[2023-12-08] MEDS: 0.9 % Sodium Chloride 1,000 ML 75 ML IVCONT ×2 (03:13→15:47)
[2023-12-08 04:00] VITALS: BP 122/56; PULSE 65; RESP 16; TEMP 36.6; O2SAT 98
[2023-12-08 06:41] LABS: MANUAL DIFF FLAG NO
[2023-12-08 06:53] LABS: Basophils Percent Auto 0.9 % (0-2); Eosinophils Absolute Auto 0.1 X10*3/uL (0.0-0.4); Eosinophils Percent Auto 1.3 % (0-4); Hemoglobin 13.2 g/dl (12.0-16.0); Imm Gran Abs Auto 0.01 X10*3/uL (0.00-0.03); Imm Gran Pct Auto 0.2 % (0.0-0.4); Mean Corpuscular HGB Conc 33.8 g/dl (31.0-35.0); Mean Corpuscular Volume 88.6 fL (80.0-98.0); Monocytes Absolute Auto 0.6 X10*3/uL (0.1-1.2); Monocytes Percent Auto 12.7 % (2-11); Neutrophils Absolute Auto 2.8 x10*3/uL (2.0-8.3); Neutrophils Percent Auto 62.9 % (45-73); Platelet Count 179 X10*3/uL (160-400); Red Cell Distribution Width 13.5 % (11.0-16.0); White Blood Count 4.5 X10*3/uL (4.8-10.8)
[2023-12-08 07:02] LABS: Anion Gap 10 (12-20); Blood Urea Nitrogen 8 mg/dL (9-16); Calcium 8.5 mg/dL (8.4-10.2); Carbon Dioxide 26 mmol/L (22-29); Chloride 113 mmol/L (96-108); Creatinine Clr Calc Pharmacy 59.5; Estimated Glomerular Filt Rate > 60; Glucose Random 82 mg/dL (60-115); Potassium 3.9 mmol/L (3.3-5.1); Sodium 145 mmol/L (135-145)
[2023-12-08 07:28] VITALS: BP 115/57; PULSE 73; RESP 16; TEMP 36; O2SAT 93
[2023-12-08] MEDS: Donepezil HCl 5 MG TABLET PO (07:39)
--- NOTE | 2023-12-08 09:41 | MHC.CM.PN ---
SPOKE WITH PATIENTS DIL WHO EXPLINS THAT PT LIVES ALONE HAD MOW BUT WAS REFUSING THEM,AN APPT FOR SERVIES THRU [facility] HAS BEEN ARRANGED FOR December PT [facility]FAMILY SUPPORT AND SERVIES VS STR
--- NOTE | 2023-12-08 10:10 | PM.PNGS ---
Subjective Subjective Date of Service: 12/08/23 Interval history: Feels improved, less abdominal pain. Denies nausea. No further liquid stools. Physical Exam Vital Signs: Vital Signs: Last Vital Signs Temp 96.8 F 12/08/23 07:28 Pulse 73 12/08/23 07:28 Resp 16 12/08/23 07:28 BP 115/57 L 12/08/23 07:28 Pulse Ox 93 12/08/23 07:28 O2 Del Method Room Air 12/08/23 07:28 O2 Flow Rate 2.5 12/08/23 04:00 BMI result Body Mass Index 31.9 Const: General: comfortable, no acute distress and alert Orientation/consciousness: patient oriented x3 Resp: Effort & Inspection: normal respiratory effort GI: Other: large hernia, soft and reducible, mild tenderness Inspection: Yes distended (mild) Palpation (GI): Soft to palpation and Tenderness to palpation present (GI) (mild lower abdominal tenderness) Skin: General skin exam: no rashes or lesions noted Neuro: General: patient oriented x3 and moves all extremities Objective Data Active Medications Acetaminophen (Acetaminophen 325 Mg Tablet) 650 mg PO Q6H PRN PRN Reason: Pain, Mild (Pain Scale 1-3), fever or headache Calcium Carbonate (Calcium Carbonate 750 Mg Tab.Chew) 750 mg PO Q4H PRN PRN Reason: Heartburn Donepezil HCl (Donepezil Hcl 5 Mg Tablet) 5 mg PO DAILY [facility] Last Admin: 12/08/23 07:39 Dose: 5 mg Documented By: PATRICIA Enoxaparin Sodium (Enoxaparin Sodium 40 Mg/0.4 Ml Syringe) 40 mg SUBCUT Q24H [facility] Last Admin: 12/07/23 14:32 Dose: 40 mg Documented By: JAYLIN Sodium Chloride (Ns) 1,000 mls @ 75 mls/hr IVCONT .[id number] [facility] Last Admin: 12/08/23 03:13 Dose: 75 mls/hr Documented By: RAMOS Magnesium Hydroxide (Milk Of Magnesia 30 Ml Oral.Susp) 30 ml PO DAILY PRN PRN Reason: Constipation Melatonin (Melatonin 3 Mg Tablet) 6 mg PO BEDTIME PRN PRN Reason: Insomnia Morphine Sulfate (Morphine Sulfate 2 Mg/Ml Cartridge) 2 mg IVPUSH Q4H PRN; Protocol PRN Reason: Pain, Severe (Pain Scale 7-10) Ondansetron HCl (Ondansetron Hcl 4 Mg/2 Ml Vial) 4 mg IVPUSH Q8H PRN PRN Reason: Nausea and Vomiting Oxycodone HCl (Oxycodone Hcl Immed Release 5 Mg Tablet) 5 mg PO Q6H PRN PRN Reason: Pain, Moderate(Pain Scale 4-6) Sodium Chloride (0.9 % Sodium Chloride Flush 3 Ml Syringe) 3 ml IVFLUSH QSHIFT [facility] Last Admin: 12/08/23 07:19 Dose: Not Given Documented By: PATRICIA Non-Admin Reason: IV Running Labs 12/08/23 05:36 12/08/23 05:36 Labs: Laboratory Results - last 24 hr 12/07/23 12/08/23 10:05 05:36 MCV 88.6 MCH 30.0 MCHC 33.8 RDW 13.5 Plt Count 179 MPV 11.0 Immature Gran % (Auto) 0.2 Neut % (Auto) 62.9 Lymph % (Auto) 22.0 [place] % (Auto) 12.7 H Eos % (Auto) 1.3 Baso % (Auto) 0.9 Lymph # (Auto) 1.0 L [place] # (Auto) 0.6 Eos # (Auto) 0.1 Baso # (Auto) 0.0 Abs Immat Gran (auto) 0.01 Absolute Neuts (auto) 2.8 Absolute Nucleated RBC 0.000 Nucleated RBC % (auto) 0.0 Anion Gap 10 L Estim Creat Clear Calc 59.5 Estimated GFR > 60 Random Glucose 82 Calcium 8.5 D Urine Color Dark Yellow Urine Appearance Turbid Urine pH 5.5 Ur Specific [place] >= 1.030 H Urine Protein 30 (1+) H Urine Glucose (UA) Negative Urine Ketones 15 Urine Blood Negative Urine Nitrite Negative Ur Leukocyte Esterase Moderate (2+) H Urine RBC 0-2 Urine WBC 6-10 Ur Squamous Epith Cells 3-5 Calcium Oxalate Crystal Present Urine Bacteria 1+ Hyaline Casts 0-2 Microbiology Microbiology Results: Microbiology 12/07/23 Unknown Urine Culture - Final Urine clean catch - Urine roe top Procedures Date of Service Date of Service: 12/08/23 Progress Note: A&P Assessment and plan (1) Diarrhea: Status: Acute Plan Gastroenteritis vs PSBO. Appears to be resolving. Abd softly distended, mild lower abd tenderness. Diet as tolerated. Encouraged OOB/ambulation and increasing activity. Time Spent With Patient Time: Total time managing care of this patient today ____ minutes. Quality Stroke Does the patient have a stroke diagnosis?: No VTE Prior VTE?: No VTE Risk Level:: Medical - moderate - high VTE Device Contraindication: Treatment Not Indicated VTE Drug Contraindication: N/A - Med Ordered
--- NOTE | 2023-12-08 12:20 | P.PNIM_ITS ---
Subjective Subjective Date of Service: 12/08/23 Interval History: Patient notes improvement since admission; tolerating small amounts of clear liquids. Review of Systems Denies chest pain Denies nausea vomiting no diarrhea. Denies bowel movement or flatulence Denies fever chills Physical Exam 2 Vital Signs: Vital Signs: Last Vital Signs Temp 96.8 F 12/08/23 07:28 Pulse 73 12/08/23 07:28 Resp 16 12/08/23 07:28 BP 115/57 L 12/08/23 07:28 Pulse Ox 93 12/08/23 07:28 O2 Del Method Room Air 12/08/23 07:28 O2 Flow Rate 2.5 12/08/23 04:00 BMI result Body Mass Index 31.9 Const: Other: Awake alert no acute distress Resp: Other: Clear to auscultation bilaterally no rales rhonchi or wheezes Cardio: Other: No S4; positive S1-S2; no S3 murmurs rubs or gallops GI: Other: Soft with increased bowel sounds compared to admission. Mild tenderness right lower quadrant without peritoneal signs Extrem: Other: No edema bilaterally Objective Data Active Medications Acetaminophen (Acetaminophen 325 Mg Tablet) 650 mg PO Q6H PRN PRN Reason: Pain, Mild (Pain Scale 1-3), fever or headache Calcium Carbonate (Calcium Carbonate 750 Mg Tab.Chew) 750 mg PO Q4H PRN PRN Reason: Heartburn Donepezil HCl (Donepezil Hcl 5 Mg Tablet) 5 mg PO DAILY [facility] Last Admin: 12/08/23 07:39 Dose: 5 mg Documented By: PATRICIA Enoxaparin Sodium (Enoxaparin Sodium 40 Mg/0.4 Ml Syringe) 40 mg SUBCUT Q24H [facility] Last Admin: 12/07/23 14:32 Dose: 40 mg Documented By: JAYLIN Sodium Chloride (Ns) 1,000 mls @ 75 mls/hr IVCONT .[id number] [facility] Last Admin: 12/08/23 03:13 Dose: 75 mls/hr Documented By: RAMOS Magnesium Hydroxide (Milk Of Magnesia 30 Ml Oral.Susp) 30 ml PO DAILY PRN PRN Reason: Constipation Melatonin (Melatonin 3 Mg Tablet) 6 mg PO BEDTIME PRN PRN Reason: Insomnia Morphine Sulfate (Morphine Sulfate 2 Mg/Ml Cartridge) 2 mg IVPUSH Q4H PRN; Protocol PRN Reason: Pain, Severe (Pain Scale 7-10) Ondansetron HCl (Ondansetron Hcl 4 Mg/2 Ml Vial) 4 mg IVPUSH Q8H PRN PRN Reason: Nausea and Vomiting Oxycodone HCl (Oxycodone Hcl Immed Release 5 Mg Tablet) 5 mg PO Q6H PRN PRN Reason: Pain, Moderate(Pain Scale 4-6) Sodium Chloride (0.9 % Sodium Chloride Flush 3 Ml Syringe) 3 ml IVFLUSH QSHIFT [facility] Last Admin: 12/08/23 07:19 Dose: Not Given Documented By: PATRICIA Non-Admin Reason: IV Running Labs 12/08/23 05:36 12/08/23 05:36 Labs: Laboratory Results - last 24 hr 12/08/23 05:36 MCV 88.6 MCH 30.0 MCHC 33.8 RDW 13.5 Plt Count 179 MPV 11.0 Immature Gran % (Auto) 0.2 Neut % (Auto) 62.9 Lymph % (Auto) 22.0 [place] % (Auto) 12.7 H Eos % (Auto) 1.3 Baso % (Auto) 0.9 Lymph # (Auto) 1.0 L [place] # (Auto) 0.6 Eos # (Auto) 0.1 Baso # (Auto) 0.0 Abs Immat Gran (auto) 0.01 Absolute Neuts (auto) 2.8 Absolute Nucleated RBC 0.000 Nucleated RBC % (auto) 0.0 Anion Gap 10 L Estim Creat Clear Calc 59.5 Estimated GFR > 60 Random Glucose 82 Calcium 8.5 D Microbiology Microbiology Results: Microbiology 12/07/23 Unknown Urine Culture - Final Urine clean catch - Urine roe top Assessment and Plan (1) Partial small bowel obstruction: Status: Acute Plan 70-year-old female with history of hyperlipidemia, history of colon cancer s/p resection in 2017, cognitive impairment admitted for further management of PSBO/ileus 1.Acute PSBO/ileus -bowel sounds more active today tolerating clear liquid diet and small amounts -advance diet as tolerated.. Continue IV fluids until tolerating adequate amounts orally -encouraged ambulation 2.Unspecified cognitive impairment -appears stable and well compensated -continue donepazil lovenox dnr/dni Patient requires ongoing hospitalization for supplemental IV fluids given partial small-bowel obstruction; ongoing specialist follow-up Quality Stroke Does the patient have a stroke diagnosis?: No VTE Prior VTE?: No VTE Risk Level:: Medical - moderate - high VTE Device Contraindication: Treatment Not Indicated VTE Drug Contraindication: N/A - Med Ordered
[2023-12-08] MEDS: Enoxaparin Sodium 40 MG/0.4 ML SYRINGE SUBCUT (13:31)
[2023-12-08 15:27] VITALS: BP 143/67; PULSE 83; RESP 18; TEMP 36.2; O2SAT 96
[2023-12-09] MEDS: 0.9 % Sodium Chloride 1,000 ML 75 ML IVCONT (03:46)
[2023-12-09 03:47] VITALS: BP 133/65; PULSE 65; RESP 16; TEMP 36.3; O2SAT 94
--- NOTE | 2023-12-09 06:09 | PC.NURSE ---
Pt is AOx3, she is forgetful at times. She is able to make her needs known. Pt is x1 assist OOB w/walker to bedside commode. No BM this shift. She has stated she is having some cramping in her ABD but declined any pain medication stating it is what it is . She does not appear to be in distress at this time. Call jansen is within reach. Bed alarm is on. Safety maintained throughout shift.
[2023-12-09 06:53] LABS: MANUAL DIFF FLAG NO
[2023-12-09 06:58] LABS: Basophils Percent Auto 0.7 % (0-2); Eosinophils Absolute Auto 0.1 X10*3/uL (0.0-0.4); Eosinophils Percent Auto 1.6 % (0-4); Hematocrit 38.3 % (37.0-47.0); Hemoglobin 13.1 g/dl (12.0-16.0); Imm Gran Abs Auto 0.01 X10*3/uL (0.00-0.03); Imm Gran Pct Auto 0.2 % (0.0-0.4); Lymphocytes Absolute Auto 1.1 X10*3/uL (1.2-4.9); Lymphocytes Percent Auto 25.1 % (20-40); Mean Corpuscular HGB Conc 34.2 g/dl (31.0-35.0); Mean Corpuscular Hemoglobin 29.8 pg (27.0-33.0); Mean Platelet Volume 10.7 fL (9.4-12.3); Monocytes Absolute Auto 0.5 X10*3/uL (0.1-1.2); Monocytes Percent Auto 11.2 % (2-11); Neutrophils Absolute Auto 2.7 x10*3/uL (2.0-8.3); Neutrophils Percent Auto 61.2 % (45-73); Platelet Count 175 X10*3/uL (160-400); Red Cell Distribution Width 13.5 % (11.0-16.0); White Blood Count 4.4 X10*3/uL (4.8-10.8)
[2023-12-09 07:15] LABS: Alanine Aminotransferase 7 U/L (0-31); Albumin Level 2.8 g/dL (3.5-5.0); Alkaline Phosphatase 47 U/L (39-117); Anion Gap 11 (12-20); Aspartate Amino Transferase 12 U/L (5-31); Bilirubin Total 0.5 mg/dL (0.0-1.0); Blood Urea Nitrogen 4 mg/dL (9-16); Calcium 8.1 mg/dL (8.4-10.2); Carbon Dioxide 25 mmol/L (22-29); Chloride 111 mmol/L (96-108); Creatinine Clr Calc Pharmacy 67.8; Estimated Glomerular Filt Rate > 60; Glucose Fasting 84 mg/dL (60-99); Potassium 3.5 mmol/L (3.3-5.1); Sodium 143 mmol/L (135-145); Total Protein 5.1 g/dL (6.5-8.0)
[2023-12-09 07:17] VITALS: BP 126/65; PULSE 60; RESP 16; TEMP 36.4; O2SAT 94
[2023-12-09] MEDS: 0.9 % Sodium Chloride Flush 3 ML SYRINGE IVFLUSH ×2 (09:16→21:13)
[2023-12-09] MEDS: Donepezil HCl 5 MG TABLET PO (09:17)
--- NOTE | 2023-12-09 10:23 | PC.NURSE ---
DIRECTOR [employer] reported stool mixed with urine unable to send specimen
[2023-12-09 11:10] VITALS: BP 126/65; PULSE 60; O2SAT 94
--- NOTE | 2023-12-09 12:20 | P.CDIM_ITS ---
PROVIDER RESPONSE TEXT: To clarify, the appropriate diagnosis supported by the clinical indicators: Ileus: PBSO QUERY TEXT: PHYSICIAN'S DOCUMENTATION REQUEST Date of Query: 12/09/2023 08:06 AM EDT Patient Name: Marisa Galan Admit Date: 12/07/2023 Dear Sincere Barakat, A review of the medical record indicates additional documentation may be needed. Please review below and update the documentation accordingly. Clinical Indicators: Progress note dated 12/07 - Acute PSBO/ileus Bowel sounds more active today tolerating clear liquid diet and small amounts. Advance diet as tolerated. Continue IV fluids. Based on the above, please provide any specifics to the noted Ileus: Ileus obstruction, adynamic, neurogenic, mechanical, paralytic, etc. Other (explain) Clinically unable to determine (explain) Thank you, Belen Trevino, CCS, CDIS Use of terms such as suspected, likely, concern for, or probable (associated with a specific diagnosi s that is being evaluated, monitored, or treated as if it exists) are acceptable and can be coded in the inpatient se tting, when documented at the time of discharge. Please use your independent medical judgment in providing your response. THIS QUERY IS PART OF THE PERMANENT MEDICAL RECORD
[2023-12-09] MEDS: Enoxaparin Sodium 40 MG/0.4 ML SYRINGE SUBCUT (13:28)
--- NOTE | 2023-12-09 13:29 | MHC.CM.PN ---
per rounds md will order pt eval,it is anticapated that pt will need str pt is agreeable
--- NOTE | 2023-12-09 13:48 | HO.PM.IMPN ---
Subjective Subjective Date of Service: 12/09/23 Interval History: Slowly improving. Still deconditioned. No acute events overnight Review of Systems Denies chest pain Denies nausea vomiting no diarrhea. Denies bowel movement or flatulence Denies fever chills Physical Exam Vital Signs: Vital Signs: Last Vital Signs Temp 97.5 F 12/09/23 07:17 Pulse 60 12/09/23 11:10 Resp 16 12/09/23 07:17 BP 126/65 12/09/23 11:10 Pulse Ox 94 12/09/23 11:10 O2 Del Method Room Air 12/09/23 07:17 O2 Flow Rate 2.5 12/08/23 04:00 BMI result Body Mass Index 31.9 Const: Other: Awake alert no acute distress Resp: Other: Clear to auscultation bilaterally no rales rhonchi or wheezes Cardio: Other: No S4; positive S1-S2; no S3 murmurs rubs or gallops GI: Other: Soft with increased bowel sounds compared to admission. Mild tenderness right lower quadrant without peritoneal signs Extrem: Other: No edema bilaterally Objective Data Active Medications Acetaminophen (Acetaminophen 325 Mg Tablet) 650 mg PO Q6H PRN PRN Reason: Pain, Mild (Pain Scale 1-3), fever or headache Calcium Carbonate (Calcium Carbonate 750 Mg Tab.Chew) 750 mg PO Q4H PRN PRN Reason: Heartburn Donepezil HCl (Donepezil Hcl 5 Mg Tablet) 5 mg PO DAILY [facility] Last Admin: 12/09/23 09:17 Dose: 5 mg Documented By: KIMMIE Enoxaparin Sodium (Enoxaparin Sodium 40 Mg/0.4 Ml Syringe) 40 mg SUBCUT Q24H [facility] Last Admin: 12/09/23 13:28 Dose: 40 mg Documented By: KIMMIE Magnesium Hydroxide (Milk Of Magnesia 30 Ml Oral.Susp) 30 ml PO DAILY PRN PRN Reason: Constipation Melatonin (Melatonin 3 Mg Tablet) 6 mg PO BEDTIME PRN PRN Reason: Insomnia Morphine Sulfate (Morphine Sulfate 2 Mg/Ml Cartridge) 2 mg IVPUSH Q4H PRN; Protocol PRN Reason: Pain, Severe (Pain Scale 7-10) Ondansetron HCl (Ondansetron Hcl 4 Mg/2 Ml Vial) 4 mg IVPUSH Q8H PRN PRN Reason: Nausea and Vomiting Oxycodone HCl (Oxycodone Hcl Immed Release 5 Mg Tablet) 5 mg PO Q6H PRN PRN Reason: Pain, Moderate(Pain Scale 4-6) Sodium Chloride (0.9 % Sodium Chloride Flush 3 Ml Syringe) 3 ml IVFLUSH QSHIFT [facility] Last Admin: 12/09/23 09:16 Dose: 3 ml Documented By: KIMMIE Labs 12/09/23 05:53 12/09/23 05:53 Labs: Laboratory Results - last 24 hr 12/09/23 05:53 MCV 87.0 MCH 29.8 MCHC 34.2 RDW 13.5 Plt Count 175 MPV 10.7 Immature Gran % (Auto) 0.2 Neut % (Auto) 61.2 Lymph % (Auto) 25.1 [place] % (Auto) 11.2 H Eos % (Auto) 1.6 Baso % (Auto) 0.7 Lymph # (Auto) 1.1 L [place] # (Auto) 0.5 Eos # (Auto) 0.1 Baso # (Auto) 0.0 Abs Immat Gran (auto) 0.01 Absolute Neuts (auto) 2.7 Absolute Nucleated RBC 0.000 Nucleated RBC % (auto) 0.0 Anion Gap 11 L Estim Creat Clear Calc 67.8 Estimated GFR > 60 Fasting Glucose 84 Calcium 8.1 L Total Bilirubin 0.5 AST 12 ALT 7 Alkaline Phosphatase 47 Total Protein 5.1 L Albumin 2.8 L Microbiology Microbiology Results: Microbiology 12/07/23 12:02 Blood Culture - Preliminary Blood - Venous No growth after 24 hours. 12/07/23 12:02 Blood Culture - Preliminary Blood - Venous No growth after 24 hours. Assessment and Plan (1) Partial small bowel obstruction: Status: Acute Plan 70-year-old female with history of hyperlipidemia, history of colon cancer s/p resection in 2017, cognitive impairment admitted for further management of PSBO/ileus 1.Acute PSBO/ileus -bowel sounds more active today advance diet to full liquid -advance diet as tolerated.. Continue IV fluids until tolerating adequate amounts orally -encouraged ambulation.. Seen by PT who recommended short-term rehab 2.Unspecified cognitive impairment -appears stable and well compensated -continue donepazil lovenox dnr/dni Patient requires ongoing hospitalization for supplemental IV fluids given partial small-bowel obstruction; ongoing specialist follow-up Quality Stroke Does the patient have a stroke diagnosis?: No VTE Prior VTE?: No VTE Risk Level:: Medical - moderate - high VTE Device Contraindication: Treatment Not Indicated VTE Drug Contraindication: N/A - Med Ordered
[2023-12-09 15:34] VITALS: BP 135/64; PULSE 69; RESP 18; TEMP 36.1; O2SAT 95
[2023-12-09 18:57] VITALS: BP 118/59; PULSE 50; RESP 18; TEMP 36.2; O2SAT 96
[2023-12-09 20:54] LABS: CDiff Gene PCR NEGATIVE (Negative)
[2023-12-10 04:00] VITALS: BP 141/63; PULSE 73; RESP 17; TEMP 36.3; O2SAT 93
[2023-12-10 07:23] VITALS: BP 141/63; PULSE 73; O2SAT 93
[2023-12-10 08:00] VITALS: BP 130/60; PULSE 66; RESP 17; TEMP 36.7; O2SAT 96
[2023-12-10] MEDS: 0.9 % Sodium Chloride Flush 3 ML SYRINGE IVFLUSH ×3 (08:23→19:12)
[2023-12-10] MEDS: Donepezil HCl 5 MG TABLET PO (08:25)
[2023-12-10 09:59] LABS: Adenovirus F 40/41 Not Detected (Not Detect.); Astrovirus Not Detected (Not Detect.); Campylobacter Not Detected (Not Detect.); Cryptosporidium Not Detected (Not Detect.); Cyclospora cayetanensis Not Detected (Not Detect.); E. coli EAEC Not Detected (Not Detect.); E. coli EPEC Not Detected (Not Detect.); E. coli ETEC Not Detected (Not Detect.); E. coli STEC Not Detected (Not Detect.); Entamoeba histolytica Not Detected (Not Detect.); Giardia lamblia Not Detected (Not Detect.); Norovirus GI/GII Not Detected (Not Detect.); Plesiomonas shigelloides Not Detected (Not Detect.); Rotavirus A Not Detected (Not Detect.); Salmonella Not Detected (Not Detect.); Sapovirus Not Detected (Not Detect.); Shigella sp./EIEC Not Detected (Not Detect.); Vibrio Not Detected (Not Detect.); Vibrio Cholerae Not Detected (Not Detect.); Yersinia enterocolitica Not Detected (Not Detect.)
--- NOTE | 2023-12-10 14:31 | HO.PM.IMPN ---
Subjective Subjective Date of Service: 12/10/23 Interval History: Being followed for partial small-bowel obstruction. Tolerating clear liquid diet had multiple loose stool last night, denies fever chills, denies lightheadedness, no dizziness, continued to have mild mid abdominal discomfort. Review of Systems All other system reviewed and negative Physical Exam Vital Signs: Vital Signs: Last Vital Signs Temp 98.1 F 12/10/23 08:00 Pulse 66 12/10/23 08:00 Resp 17 12/10/23 08:00 BP 130/60 12/10/23 08:00 Pulse Ox 96 12/10/23 08:00 O2 Del Method Room Air 12/10/23 08:00 O2 Flow Rate 2.5 12/08/23 04:00 BMI result Body Mass Index 31.9 Const: Other: General awake alert x3, in no acute distress. Neck supple no JVD. CVS regular rate rhythm, Respiratory lungs clear to auscultation, no respiratory distress, no wheeze, no rhonchi. Gastrointestinal abdomen soft, mild mid abdominal discomfort, large hernia soft and reducible, bowel sounds audible, no guarding , no rigidity. Extremities no edema. Neuro non focal,moving all 4 extremity speech clear. Skin no rash Psych appropriate affect Objective Data Active Medications Acetaminophen (Acetaminophen 325 Mg Tablet) 650 mg PO Q6H PRN PRN Reason: Pain, Mild (Pain Scale 1-3), fever or headache Calcium Carbonate (Calcium Carbonate 750 Mg Tab.Chew) 750 mg PO Q4H PRN PRN Reason: Heartburn Donepezil HCl (Donepezil Hcl 5 Mg Tablet) 5 mg PO DAILY [facility] Last Admin: 12/10/23 08:25 Dose: 5 mg Documented By: MYLES Enoxaparin Sodium (Enoxaparin Sodium 40 Mg/0.4 Ml Syringe) 40 mg SUBCUT Q24H [facility] Last Admin: 12/09/23 13:28 Dose: 40 mg Documented By: KIMMIE Magnesium Hydroxide (Milk Of Magnesia 30 Ml Oral.Susp) 30 ml PO DAILY PRN PRN Reason: Constipation Melatonin (Melatonin 3 Mg Tablet) 6 mg PO BEDTIME PRN PRN Reason: Insomnia Morphine Sulfate (Morphine Sulfate 2 Mg/Ml Cartridge) 2 mg IVPUSH Q4H PRN; Protocol PRN Reason: Pain, Severe (Pain Scale 7-10) Ondansetron HCl (Ondansetron Hcl 4 Mg/2 Ml Vial) 4 mg IVPUSH Q8H PRN PRN Reason: Nausea and Vomiting Oxycodone HCl (Oxycodone Hcl Immed Release 5 Mg Tablet) 5 mg PO Q6H PRN PRN Reason: Pain, Moderate(Pain Scale 4-6) Sodium Chloride (0.9 % Sodium Chloride Flush 3 Ml Syringe) 3 ml IVFLUSH QSHIFT [facility] Last Admin: 12/10/23 08:23 Dose: 3 ml Documented By: MYLES Labs 12/09/23 05:53 12/09/23 05:53 Labs: Laboratory Results - last 24 hr 12/09/23 18:31 Stl C. cayetanensis PCR Not Detected Stool Rotavirus A PCR Not Detected Stl Adenov F 40/41 PCR Not Detected Stool Astrovirus (PCR) Not Detected Stool Campylobacter PCR Not Detected Stool Cryptosporidium PCR Not Detected Stl Sh Tox Pr E STEC PCR Not Detected Stool E coli O157 PCR Not applicable Stl Enterotoxigenic E PCR Not Detected Stool EPEC (PCR) Not Detected Stool EAEC (PCR) Not Detected Stl E. histolytica PCR Not Detected Stool Giardia Lamblia PCR Not Detected Stl P. shigelloides PCR Not Detected Stool Salmonella PCR Not Detected Stool Sapovirus (PCR) Not Detected Stl Shigella/EIEC PCR Not Detected St Y.enterocolitica PCR Not Detected Stool Vibrio (PCR) Not Detected Stl Vibrio cholerae PCR Not Detected Stl Norovirus GI/GII PCR Not Detected C. difficile Tox B Gene NEGATIVE Microbiology Microbiology Results: Microbiology 12/07/23 12:02 Blood Culture - Preliminary Blood - Venous No growth after 48 hours. 12/07/23 12:02 Blood Culture - Preliminary Blood - Venous No growth after 48 hours. Assessment and Plan (1) Partial small bowel obstruction: Status: Acute Plan 70-year-old female with history of hyperlipidemia, history of colon cancer s/p resection in 2017, cognitive impairment admitted for further management of PSBO/ileus 1.Acute PSBO/versus gastroenteritis -tolerating clear liquid diet, multiple stools last night with persistent mild abdominal discomfort Will advance diet to full liquid, add ensure Clear, encourage out of bed and ambulation IV morphine/oxycodone for pain control DC Mom since can contribute to diarrhea, follow labs PT recommend short-term rehab 2.Unspecified cognitive impairment -appears stable and well compensated -continue donepazil lovenox dnr/dni Patient requires ongoing hospitalization for supplemental IV fluids given partial small-bowel obstruction; ongoing specialist follow-up. Quality Stroke Does the patient have a stroke diagnosis?: No VTE Prior VTE?: No VTE Risk Level:: Medical - moderate - high VTE Device Contraindication: Treatment Not Indicated VTE Drug Contraindication: N/A - Med Ordered
[2023-12-10] MEDS: Enoxaparin Sodium 40 MG/0.4 ML SYRINGE SUBCUT (15:12)
[2023-12-10 15:18] VITALS: BP 139/59; PULSE 71; RESP 18; TEMP 36.2; O2SAT 95
[2023-12-10 19:29] VITALS: BP 150/63; PULSE 75; RESP 16; TEMP 36.1; O2SAT 96
[2023-12-11 04:00] VITALS: BP 107/55; PULSE 66; RESP 16; TEMP 36.4; O2SAT 95
[2023-12-11 06:53] LABS: Hematocrit 39.9 % (37.0-47.0); Mean Corpuscular HGB Conc 35.1 g/dl (31.0-35.0); Mean Corpuscular Hemoglobin 29.9 pg (27.0-33.0); Mean Corpuscular Volume 85.1 fL (80.0-98.0); Mean Platelet Volume 10.9 fL (9.4-12.3); Platelet Count 187 X10*3/uL (160-400); Red Blood Count 4.69 X10*6/uL (4.20-5.50); Red Cell Distribution Width 13.2 % (11.0-16.0); White Blood Count 4.8 X10*3/uL (4.8-10.8)
[2023-12-11 07:35] VITALS: BP 128/62; PULSE 70; RESP 17; TEMP 36.4; O2SAT 95
[2023-12-11 08:36] LABS: Anion Gap 12 (12-20); Blood Urea Nitrogen 3 mg/dL (9-16); Calcium 8.7 mg/dL (8.4-10.2); Carbon Dioxide 26 mmol/L (22-29); Chloride 107 mmol/L (96-108); Creatinine Clr Calc Pharmacy 63.8; Estimated Glomerular Filt Rate > 60; Glucose Random 91 mg/dL (60-115); Potassium 2.7 mmol/L (3.3-5.1); Sodium 142 mmol/L (135-145)
--- NOTE | 2023-12-11 08:42 | MHC.CM.PN ---
EMR REVIEWED, PER PT'S JONELLE PARRA, [facility] HAS DECLINED PT STR, FAMILY WILL APPEAL DECISION, PT WILL REMAIN INT UNTIL APPEAL DECISION IS MADE, CM WILL CONT TO FOLLOW DC NEEDS.
[2023-12-11 08:57] VITALS: BP 128/62; PULSE 70; O2SAT 95
[2023-12-11] MEDS: Donepezil HCl 5 MG TABLET PO (09:04)
[2023-12-11] MEDS: 0.9 % Sodium Chloride Flush 3 ML SYRINGE IVFLUSH ×3 (09:04→21:45)
[2023-12-11] MEDS: Potassium Chloride ER 20 MEQ TAB.ER.PRT 60 MEQ PO (11:08)
--- NOTE | 2023-12-11 11:19 | HO.PM.IMPN ---
Subjective Subjective Date of Service: 12/11/23 Interval History: Being followed for partial small-bowel obstruction. Stools more formed, had 2 bowel movement this morning brown mushy, no nausea, no vomiting tolerating diet with no worsening abdominal discomfort, no fevers no chills, no acute issues overnight. Review of Systems All other system reviewed and are negative Physical Exam Vital Signs: Vital Signs: Last Vital Signs Temp 97.6 F 12/11/23 07:35 Pulse 70 12/11/23 08:57 Resp 17 12/11/23 07:35 BP 128/62 12/11/23 08:57 Pulse Ox 95 12/11/23 08:57 O2 Del Method Room Air 12/11/23 07:35 O2 Flow Rate 2.5 12/08/23 04:00 BMI result Body Mass Index 31.9 Const: Other: General awake alert x3, in no acute distress. Neck supple no JVD. CVS regular rate rhythm, Respiratory lungs clear to auscultation, no respiratory distress, no wheeze, no rhonchi. Gastrointestinal abdomen soft, mild mid abdominal discomfort, large hernia soft and reducible, bowel sounds audible, no guarding , no rigidity. Extremities no edema. Neuro non focal,moving all 4 extremity speech clear. Skin no rash Psych appropriate affect Objective Data Active Medications Acetaminophen (Acetaminophen 325 Mg Tablet) 650 mg PO Q6H PRN PRN Reason: Pain, Mild (Pain Scale 1-3), fever or headache Calcium Carbonate (Calcium Carbonate 750 Mg Tab.Chew) 750 mg PO Q4H PRN PRN Reason: Heartburn Donepezil HCl (Donepezil Hcl 5 Mg Tablet) 5 mg PO DAILY [facility] Last Admin: 12/11/23 09:04 Dose: 5 mg Documented By: MYLES Enoxaparin Sodium (Enoxaparin Sodium 40 Mg/0.4 Ml Syringe) 40 mg SUBCUT Q24H [facility] Last Admin: 12/10/23 15:12 Dose: 40 mg Documented By: BRANDEN Magnesium Hydroxide (Milk Of Magnesia 30 Ml Oral.Susp) 30 ml PO DAILY PRN PRN Reason: Constipation Melatonin (Melatonin 3 Mg Tablet) 6 mg PO BEDTIME PRN PRN Reason: Insomnia Morphine Sulfate (Morphine Sulfate 2 Mg/Ml Cartridge) 2 mg IVPUSH Q4H PRN; Protocol PRN Reason: Pain, Severe (Pain Scale 7-10) Ondansetron HCl (Ondansetron Hcl 4 Mg/2 Ml Vial) 4 mg IVPUSH Q8H PRN PRN Reason: Nausea and Vomiting Oxycodone HCl (Oxycodone Hcl Immed Release 5 Mg Tablet) 5 mg PO Q6H PRN PRN Reason: Pain, Moderate(Pain Scale 4-6) Sodium Chloride (0.9 % Sodium Chloride Flush 3 Ml Syringe) 3 ml IVFLUSH QSHIFT [facility] Last Admin: 12/11/23 09:04 Dose: 3 ml Documented By: MYLES Labs 12/11/23 06:00 12/11/23 06:00 Labs: Laboratory Results - last 24 hr 12/11/23 06:00 MCV 85.1 MCH 29.9 MCHC 35.1 H RDW 13.2 Plt Count 187 MPV 10.9 Absolute Nucleated RBC 0.000 Nucleated RBC % (auto) 0.0 Anion Gap 12 Estim Creat Clear Calc 63.8 Estimated GFR > 60 Random Glucose 91 Calcium 8.7 D Assessment and Plan (1) Partial small bowel obstruction: Status: Acute Plan 70-year-old female with history of hyperlipidemia, history of colon cancer s/p resection in 2017, cognitive impairment admitted for further management of PSBO/ileus 1.Acute PSBO/versus gastroenteritis tolerating full liquid diet, stool more formed and less frequent, abdominal pain improving Will advance diet to regular, low-fiber. Continue supplements. Continue IV morphine/oxycodone for pain control PT recommend short-term rehab 2.Unspecified cognitive impairment -appears stable and well compensated -continue donepazil 3. Acute hypokalemia likely due to GI loss will replace and follow labs. lovenox dnr/dni Patient requires ongoing hospitalization for persistent symptoms of diarrhea and close follow-up of tolerance of diet, replacement of electrolytes and ongoing specialist follow-up. Quality Stroke Does the patient have a stroke diagnosis?: No VTE Prior VTE?: No VTE Risk Level:: Medical - moderate - high VTE Device Contraindication: Treatment Not Indicated VTE Drug Contraindication: N/A - Med Ordered
[2023-12-11] MEDS: Enoxaparin Sodium 40 MG/0.4 ML SYRINGE SUBCUT (13:42)
[2023-12-11 14:41] LABS: Potassium 3.6 mmol/L (3.3-5.1)
[2023-12-11 15:08] VITALS: BP 134/71; PULSE 78; RESP 13; TEMP 36.4; O2SAT 96
--- NOTE | 2023-12-11 19:30 | PC.NURSE ---
This Rn assumed care at 1900, Pt is AOx4 but forgetful at times. Pt denies pain at this time, just reports tiredness. Lung sounds diminished throughout, respirations even an non-labored. Abdomen is soft with +BSx4: no pain with palpation. Previous IV infiltrated site on LAC: redness and warmth to touch. New IV placed in 22#L hand.
[2023-12-11 19:40] VITALS: BP 144/73; PULSE 88; RESP 18; TEMP 36.4; O2SAT 95
[2023-12-12 03:19] VITALS: BP 116/55; PULSE 74; RESP 16; TEMP 36; O2SAT 95
[2023-12-12 07:30] VITALS: BP 124/70; PULSE 82; RESP 18; TEMP 36.2; O2SAT 97
[2023-12-12] MEDS: 0.9 % Sodium Chloride Flush 3 ML SYRINGE IVFLUSH (08:31)
[2023-12-12] MEDS: Donepezil HCl 5 MG TABLET PO (08:59)
--- NOTE | 2023-12-12 10:03 | P.DS_ITS ---
DS: Providers Provider Date of Service: 12/12/23 Date of admission: 12/07/23 13:33 Primary care physician: Eugenia Rivero NP Consults: 12/07/23 13:33 Consult to General Surgery [place]ine Consulting [place] [facility] [place] [facility] Reason for consultation: psbo DS: Diagnosis Discharge Diagnosis (1) Partial small bowel obstruction: Status: Acute DS: Summary Hospital Course Hospital Course: History of presenting illness: Date of Service: 12/07/23 Attending physician on admission: Sincere Barakat Chief Complaint: abd pain, diarrhea 70-year-old female with history of hyperlipidemia, history of colon cancer s/p resection in 2017, cognitive impairment presented to the ED earlier today for evaluation of abdominal pain and nausea, vomiting, diarrhea. She reports she has been having near constant nonradiating mid abdominal pain over the last few weeks which acutely worsened last night. This morning was reporting a 10/10 pain, now more controlled around 3-4/10. Last night she also started with a round 5+ episodes of watery diarrhea that is continued into this morning. This morning was also nauseous with vomiting. Denies any melena, hematochezia, fevers, chills, dysuria, hematuria, increased urinary frequency, cough, shortness of breath, chest pain. She denies any recent travel, antibiotic use, or eating bad foods. However, her [id number], Sujey, who is at bedside reports the patient short-term memory has been worsening over the last few months and they have been needing to remove bad foods from her refrigerator so it is unclear patient did actually consume some bad foods. She does currently live by herself. Since arrival, has been afebrile, vitals stable though did desaturate into the mid 80s following morphine administration. Was placed on 2 L supplemental O2. There is no leukocytosis. Renal function baseline, electrolyte levels normal. Lactic acid 1.5, hepatic function within normal limits. Urinalysis with 2+ leukocytes, 1+ protein, elevated specific gravity wi th positive squamous epithelial cells and 1+ bacteria. She is not complaining of any urinary symptoms. CT abdomen/pelvis shows s/p partial right colectomy was widely patent ileocolic anastomosis. The distal ileum is diseased and narrowed with proximal dilatation of small bowel with fecalization of contents consistent with partial small bowel obstruction. There is incidentally noted emphysema, colonic diverticulosis, large epigastric hernia without obstruction and mild aneurysmal dilatation of the infrarenal aorta 3 cm. She was evaluated by General surgery in the ED with suspicion for gastroenteritis. Not recommending NG tube at this time. Hospital course: 70-year-old female with history of hyperlipidemia, history of colon cancer s/p resection in 2017, cognitive impairment admitted for further management of PSBO/ileus, versus gastroenteritis treated with bowel rest IV fluids patient responded well to conservative treatment, C diff negative, diet was gradually advanced that she is tolerating well, diarrhea resolved, she was noted to have hypokalemia that is repleted. she is being discharged to rehab facility as per PT recommendation, she is recommended to follow low-fiber diet for few days and then advanced to regular. In regard to Unspecified cognitive impairment, she appears stable and well compensated, continue donepezil. Time Attestation Discharge Coordination Time (in mins): 36 Quality: Safe Use of Opioids Does Pt have an Active Cancer Diagnosis on the Problem List?: No Quality: Stroke Does the patient have a stroke diagnosis?: No Physical Exam Vital Signs: Vital Signs: Last Vital Signs Temp 97.1 F 12/12/23 07:30 Pulse 82 12/12/23 07:30 Resp 18 12/12/23 07:30 BP 124/70 12/12/23 07:30 Pulse Ox 97 12/12/23 07:30 O2 Del Method Room Air 12/12/23 07:30 O2 Flow Rate 2.5 12/08/23 04:00 BMI result Body Mass Index 31.9 Const: Other: General awake alert x3, in no acute distress. Neck supple no JVD. CVS regular rate rhythm, Respiratory lungs clear to auscultation, no respiratory distress, no wheeze, no rhonchi. Gastrointestinal abdomen soft, large hernia soft and reducible, bowel sounds audible, no guarding , no rigidity. Extremities no edema. Neuro non focal,moving all 4 extremity speech clear. Skin no rash Psych appropriate affect DS: Data Data Completed and Pending Labs on day of discharge: Laboratory Results - last 24 hr 12/11/23 13:57 Potassium 3.6 D Preliminary micro results at discharge 12/07/23 12:02 Blood Culture - Preliminary Blood - Venous No growth after 48 hours. 12/07/23 12:02 Blood Culture - Preliminary Blood - Venous No growth after 48 hours. Discharge Plan Discharge Anticipated Discharge Date/Time: 12/12/23 10:02 Patient Disposition: Xfer SNF Discharge Diagnosis: Partial small-bowel obstruction/ileus Referrals: Malka Johnson [Outside] Eugenia Rivero NP [Primary Care Provider] - 1 Week Discharge Medications: Continued donepezil 5 mg tablet 5 mg PO DAILY Rx Instructions: now on 5 mg daily aspirin 325 mg tablet 325 mg PO DAILY PRN (Reason: Pain) Discharge Orders: Discharge Order (Routine); Ordered 12/12/23 Ordered By: Maggie Basilio Diet: low fiber diet Activity on Discharge: As tolerated Stand Alone Forms: Patient Portal Discharge page Print Language: Welsh Care Plan Goals: Follow low-fiber diet for few days and than advance to regular diet as tolerated. Health Concerns: Cognitive impairment continue home medication. Plan of Treatment: Follow-up with primary care physician call for appointment Assessment: As above
--- NOTE | 2023-12-12 10:43 | MHC.CM.PN ---
PT HAS WON APPEAL WITH INSURANCE AND WILL DC TO STR AT [facility] TODAY MATEO NEUMANN IS EXPECTING PT FOR 1130 HOURS FAMILY WILL [employer] AWARE AND WILL CALL REPORT TO [phone]
--- NOTE | 2023-12-12 11:26 | PC.NURSE ---
Report called to the receiving facility. Family is transporting pt. to the facility.
== END 2023-12-12 11:28 | disposition skilled nursing facility (03) | DRG 390 ==
LOC: HO.ED 12:33 → HO.EDOVER 13:41 → HO.S3 17:18
PROVIDERS: Hospitalist; Admitting Provider Physician Assistant; Emergency Provider Emergency Medicine; PCP Nurse Practitioner Family; Visit Provider Hospitalist
DX: K56.690 Other partial intestinal obstruction (principal); K52.9 Noninfective gastroenteritis and colitis, unspecified; E87.6 Hypokalemia; E78.5 Hyperlipidemia, unspecified; R41.9 Unspecified symptoms and signs involving cognitive functions and awareness; Z66 Do not resuscitate; K43.2 Incisional hernia without obstruction or gangrene; Z85.038 Personal history of other malignant neoplasm of large intestine; Z79.82 Long term (current) use of aspirin; Z79.899 Other long term (current) drug therapy
CPT/HCPCS: 36415; 74177; 80048; 80053; 80076; 81001; 83605; 83690; 83735; 84132; 85025; 85027; 87040; 87086; 87493; 87507; 93005; 97116; 97162; 99285; J1650; J2270; J2405; Q9967

== ENCOUNTER → 2023-12-07 09:04 | Outpatient (BNV) | payer MEDICARE, SELFPAY | PROVIDERS: Admitting Provider Physician Assistant; Emergency Provider Emergency Medicine; PCP Nurse Practitioner Family; Visit Provider Internal Medicine Cardiovascular Disease | DX: R53.1 Weakness (principal) | CPT/HCPCS: 93010 ==

== ENCOUNTER → 2023-12-07 13:33 | Outpatient (BNV) | payer MEDICARE, SELFPAY | PROVIDERS: Admitting Provider Physician Assistant; Emergency Provider Emergency Medicine; PCP Nurse Practitioner Family; Visit Provider Surgery | DX: R19.7 Diarrhea, unspecified (principal) | CPT/HCPCS: 99223; 99232 ==

== ENCOUNTER → 2023-12-07 13:33 | Outpatient (BNV) | payer MEDICARE, SELFPAY | PROVIDERS: Admitting Provider Physician Assistant; Emergency Provider Emergency Medicine; PCP Nurse Practitioner Family; Visit Provider Physician Assistant | DX: K56.600 Partial intestinal obstruction, unspecified as to cause (principal) | CPT/HCPCS: 99223; 99232; 99239 ==

== ENCOUNTER 2024-01-26 16:19 | Outpatient (AMB) | payer MEDICARE, SELFPAY ==
--- NOTE | 2024-01-26 16:21 | MHC.OFFWIV ---
Intake Vital Signs 01/26/24 16:22 Height 5 ft 1 in Weight 152 lb BMI 28.7 BP 136/82 Blood Pressure Location Rt brachial Position Sitting Pulse 76 Pulse Source Pulse Oximeter Temp 97.6 F Temp Source Oral Pulse Oximetry (%) 98 Oxygen Delivery Method Room Air Intake Visit Reasons: EP- RT thumb cut, stitches?? Intake Note: Pt c/o laceration RT thumb. Patient Tobacco Use Status: Never used Tobacco Allergies lidocaine Allergy (Unknown, Verified 01/26/24 16:21) TOPICAL LIDOCAINE- SWELLING/REDNESS amoxicillin [From AUGMENTIN] Adverse Reaction (Severe, Verified 01/26/24 16:21) RASH clavulanic acid [From AUGMENTIN] Adverse Reaction (Severe, Verified 01/26/24 16:21) RECTAL BLEED/RASH topical lidocaine Allergy (Unknown, Uncoded 01/26/24 16:21) rash, swelling Do you need a note to return to daycare/school/sports/work: No HPI EP- RT thumb cut, stitches?? HPI Details Patient injured her hand this morning opening a window [facility] Medical History Diverticulosis History of chemotherapy Anemia History of heartburn History of diverticulosis Elevated cholesterol Incisional hernia History of colon cancer Surgical History History of total abdominal hysterectomy History of bladder suspension procedure Hx of colonoscopy History of esophagogastroduodenoscopy (EGD) History of hemicolectomy Social History Household Members: None Housing: House Do you presently have visiting nurse or other home services: No Alcohol intake: current Alcohol intake frequency: holidays/special occasions only Alcohol type: wine Patient Tobacco Use Status: Never used Tobacco service: No Physical Exam Vital Signs: Last Vital Signs Temp 97.6 F 01/26/24 16:22 Pulse 76 01/26/24 16:22 BP 136/82 01/26/24 16:22 Pulse Ox 98 01/26/24 16:22 Oxygen Delivery Method Room Air 01/26/24 16:22 BMI result Body Mass Index 28.7 Skin Other: Right hand: thumb; pulp space: 2 cm open wound. Edges are clean Office Procedures Laceration Repair Details: 2 cm open laceration in the thumb. Area cleaned with betadine and infiltrated with lidocaine. 3 sutures applied. wound approx adequate. Laceration repair performed by: Oscar Haddad Explained risks and benefits to parent: Yes Informed consent given: Yes Consent signed: Yes Location: Right hand, thumb, pulp space Length: 2 cm Sedation: No Anesthesia: 2% lidocaine Irrigation: saline Preparation: betadine Wound exploration: none Deep closure: No Skin closure: nylon Technique: three 5-0 sutures applied Topical treatment: mupiricin Tetanus toxoid ordered: No Patient tolerated procedure: [place] [id number] Repair <2.5cm Procedure code (CPT) selection complete Assessment & Plan Assessment & Plan (1) Wound of thumb due to metal nail: Code(s): S61.009A - Unspecified open wound of unspecified thumb without damage to nail, initial encounter; W45.0XXA - Nail entering through skin, initial encounter Plan: Sutures placed. Uptodate on tetanus Orders: Orders Laceration repair Today S61.009A - Unspecified open wound of unspecified thumb without damage to nail, initial encounter, W45.0XXA - Nail entering through skin, initial encounter Coding Level of Care Code Est Pt Level 3 (10994) Diagnoses Wound of thumb due to metal nail S61.009A; W45.0XXA
[2024-01-26 16:22] VITALS: BP 136/82; PULSE 76; TEMP 36.4; O2SAT 98; BMI 28.7
== END 2024-01-26 17:23 | disposition home or self-care (01) ==
PROVIDERS: PCP Nurse Practitioner Family; Visit Provider Internal Medicine
DX: S61.009A Unspecified open wound of unspecified thumb without damage to nail, initial encounter (principal); W45.0XXA Nail entering through skin, initial encounter
CPT/HCPCS: 12001; 99213

== ENCOUNTER 2024-02-02 08:02 | Outpatient (AMB) | payer MEDICARE, SELFPAY ==
[2024-02-02 08:04] VITALS: BP 114/82; PULSE 78; TEMP 36.5; O2SAT 97; BMI 28.5
--- NOTE | 2024-02-02 08:04 | AM.OFFWIN_ITS ---
Intake Vital Signs 02/02/24 08:04 Height 5 ft 1 in Weight 151 lb BMI 28.5 BP 114/82 Blood Pressure Location Lt brachial Position Sitting Pulse 78 Pulse Source Pulse Oximeter Temp 97.7 F Temp Source Oral Pulse Oximetry (%) 97 Oxygen Delivery Method Room Air Intake Visit Reasons: Removal of stitches Intake Note: pt is here for suture removal RT thumb Patient Tobacco Use Status: Never used Tobacco Allergies lidocaine Allergy (Unknown, Verified 02/02/24 08:04) TOPICAL LIDOCAINE- SWELLING/REDNESS amoxicillin [From AUGMENTIN] Adverse Reaction (Severe, Verified 02/02/24 08:04) RASH clavulanic acid [From AUGMENTIN] Adverse Reaction (Severe, Verified 02/02/24 08:04) RECTAL BLEED/RASH topical lidocaine Allergy (Unknown, Uncoded 02/02/24 08:04) rash, swelling Do you need a note to return to daycare/school/sports/work: No HPI HPI Comments History of Present Illness Details Patient is a 78-year-old female here for removal of the sutures she had placed 1 week ago into her right thumb. She states area appears to have healed well, it does not have any drainage and it is not painful. She states she has no complaints. [facility] Medical History Diverticulosis History of chemotherapy Anemia History of heartburn History of diverticulosis Elevated cholesterol Incisional hernia History of colon cancer Surgical History History of total abdominal hysterectomy History of bladder suspension procedure Hx of colonoscopy History of esophagogastroduodenoscopy (EGD) History of hemicolectomy Social History Household Members: None Housing: House Do you presently have visiting nurse or other home services: No Alcohol intake: current Alcohol intake frequency: holidays/special occasions only Alcohol type: wine Patient Tobacco Use Status: Never used Tobacco service: No Review of Systems Const All systems reviewed & are unremarkable except as noted in HPI and below Physical Exam Vital Signs: Last Vital Signs Temp 97.7 F 02/02/24 08:04 Pulse 78 02/02/24 08:04 BP 114/82 02/02/24 08:04 Pulse Ox 97 02/02/24 08:04 Oxygen Delivery Method Room Air 02/02/24 08:04 BMI result Body Mass Index 28.5 Const General: cooperative, healthy appearing, comfortable, no acute distress and well developed Orientation/consciousness: patient oriented x3 Limitations: no limitations Neuro General: patient oriented x3 Extrem Other: Right thumb, [address], clean dry and intact, wound is healing well, no signs of infection noted, no erythema, no purulence, no warmth Assessment & Plan Assessment & Plan (1) Encounter for removal of sutures: Code(s): Z48.02 - Encounter for removal of sutures Plan: Removed 3 sutures, no issues. Recommended she apply Aquaphor to the healing wound twice daily. Plan See above Coding Level of Care Code New Pt Level 3 (26593) Diagnoses Encounter for removal of sutures Z48.02
== END 2024-02-02 08:18 | disposition home or self-care (01) ==
PROVIDERS: PCP Nurse Practitioner Family; Visit Provider Physician Assistant
DX: Z48.02 Encounter for removal of sutures (principal)
CPT/HCPCS: 15853; 99213